=== PATIENT | male | born 1985 | race African-American/Black ===

== ENCOUNTER 2019-11-14 15:43 | Inpatient (IN) | payer OTHER ==
--- NOTE | 2019-11-14 15:49 | PDOC ---
Rapid Medical Evaluation Time Seen by Provider: 11/14/19 15:45 Medical Evaluation: Allergies Allergy/AdvReac Type Severity Reaction Status Date / Time No Known Allergies Allergy Verified 11/20/14 12:42 11/14/19 15:45 I have performed a brief in-person evaluation of this patient. CC: syncope immediately prior to arrival. PE: No focal findings. Orders: ekg, labs, IVF Patient will proceed to ED for further evaluation. 11/14/19 15:49 Discharge Disposition - Diagnosis Syncope and collapse - Referrals - Patient Instructions - Post Discharge Activity
[2019-11-14 15:50] VITALS: BMI 24.4
[2019-11-14] MEDS ORDERED: SODIUM CHLORIDE 1,000 ML IV STA (15:50)
[2019-11-14 16:28] LABS: BASO % 0.3 % (0-2.0); EOS % 1.2 % (0-4.5); HEMATOCRIT 42.7 % (35.4-49); LYMPH % 39.8 % (8-40); MCH 29.4 pg (25.7-33.7); MCHC 32.9 g/dl (32.0-35.9); MEAN CELL VOLUME 89.4 fl (80-96); MEAN PLT VOLUME 7.5 fl (7.5-11.1); NEUT % 51.7 % (42.8-82.8); PLATELET COUNT 287 K/MM3 (134-434); RBC 4.78 M/mm3 (4.00-5.60); RDW 13.4 % (11.9-15.9); WHITE BLOOD COUNT 10.4 K/mm3 (4.0-10.0)
--- NOTE | 2019-11-14 16:36 | PDOC ---
History of Present Illness - General Chief Complaint: Syncope/Near Syncope Stated Complaint: SYNCOPE Time Seen by Provider: 11/14/19 15:45 History Source: Patient - History of Present Illness Initial Comments: 11/14/19 16:31 34yo male who is three weeks s/p epididemal cyst resection presents after a wit nessed syncopal episode. Patient states he was standing and talking, looked up, everything went black, and he woke up on the floor. He states that the family member who witnessed it said he did not have any jerky movements, but did hit his head. He attributes this episode to not eating or drinking all day, being on his feet too much after being on two week rest after surgery, taking a full percocet rather than a half, and his daily marijuana. No headache, n/v, chest pain, SOB, neck pain. ROS negative PMH/PSH: as above meds: ibuprofen, percocet allergies: none ETOH: denies Tobacco: denies Drugs: daily cannabis use ROS GENERAL/CONSTITUTIONAL: No fever or chills. No weakness. HEAD, EYES, EARS, NOSE AND THROAT: No change in vision. No ear pain or discharge. No sore throat. CARDIOVASCULAR: No chest pain or shortness of breath RESPIRATORY: No cough, wheezing, or hemoptysis. GASTROINTESTINAL: No nausea, vomiting, diarrhea or constipation. GENITOURINARY: No dysuria, frequency, or change in urination. MUSCULOSKELETAL: No joint or muscle swelling or pain. No neck or back pain. SKIN: No rash NEUROLOGIC: loss of consciousness. No headache, vertigo, or change in stren gth/sensation. ENDOCRINE: No increased thirst. No abnormal weight change HEMATOLOGIC/LYMPHATIC: No anemia, easy bleeding, or history of blood clots. ALLERGIC/IMMUNOLOGIC: No hives or skin allergy. PE GENERAL: Awake, alert, and fully oriented, in no acute distress HEAD: No signs of trauma, normocephalic, atraumatic EYES: PERRLA, EOMI, sclera anicteric, conjunctiva clear ENT: Auricles normal inspection, hearing grossly normal, nares patent, oropharynx clear without exudates. Moist mucosa NECK: Normal ROM, supple, no lymphadenopathy, JVD, or masses LUNGS: No distress, speaks full sentences, clear to auscultation bilaterally HEART: Regular rate and rhythm, normal S1 and S2, no murmurs, rubs or gallops, peripheral pulses normal and equal bilaterally. ABDOMEN: Soft, nontender, normoactive bowel sounds. No guarding, no rebound. No masses EXTREMITIES : Normal inspection, Normal range of motion, no edema. No clubbing or cyanosis. NEUROLOGICAL: Cranial nerves II through XII grossly intact. Normal speech, no focal sensorimotor deficits. Ambulates with a cane since surgery three weeks ago SKIN: Warm, Dry, normal turgor, no rashes or lesions noted Vital Signs Temp Pulse Resp BP Pulse Ox 96.1 F L 72 18 113/76 100 11/14/19 15:46 11/14/19 15:46 11/14/19 15:46 11/14/19 15:46 11/14/19 15:46 MDM: 34yo M with recent surgery presents after a syncopal episode with headstrike. Not a perfect story for vasovagal syncope. DDx also includes cardiogenic, neurogenic, orthostatic syncope. Low concern for ICH given lack of headache, n/v, amnesia, disorientation. -EKG -CBC, CMP, trop -1L IVF 11/14/19 17:41 EKG: NSR with frequent PVCs, normal axis and intervals, LVH vs. normal variant, no ischemic ST-T changes Labs notable for: Abnormal Lab Results 11/14/19 11/14/19 16:20 16:20 WBC 10.4 H Potassium 3.3 L BUN 28.2 H Creatinine 1.8 H Will admit for syncope (cardiogenic vs. orthostatic), PVCs, CHAIM, hypokalemia. Will give another 1000ml IVF and 40meq potassium Signed out to admitting attending Past History - Medical History Allergies/Adverse Reactions: Allergies Allergy/AdvReac Type Severity Reaction Status Date / Time No Known Allergies Allergy Verified 11/14/19 15:50 Home Medications: Ambulatory Orders Ibuprofen [Motrin -] 600 mg PO TID 11/14/19 Oxycodone HCl/Acetaminophen [Percocet 5-325 mg Tablet] 1 tab PO 11/14/19 COPD: No - Surgical History Abdominal Surgery: Yes Appendectomy: Yes - Psycho-Social/Smoking History Smoking History: Never smoked Have you smoked in the past 12 months: No Information on smoking cessation initiated: No - Substance Abuse Hx (Audit-C & DAST Scrn) How often the patient has a drink containing alcohol: Never Score: In Men: 4 or > Positive; In Women: 3 or > Positive: 0 Screen Result (Pos requires Nsg. Audit-10AR): Negative In the last yr the pt used illegal drug/Rx for NonMed reason: Yes Score: Yes response is considered Positive: 1 Screen Result (Positive result requires Nsg. DAST-10): Positive *Physical Exam - Vital Signs Last Vital Signs Temp Pulse Resp BP Pulse Ox 96.1 F L 72 18 113/76 100 11/14/19 15:46 11/14/19 15:46 11/14/19 15:46 11/14/19 15:46 11/14/19 15:46 ED Treatment Course - LABORATORY CBC & Chemistry Diagram: 11/14/19 16:20 11/14/19 16:20 - ADDITIONAL ORDERS Additional order review: 11/14/19 16:20 RBC 4.78 MCV 89.4 MCHC 32.9 RDW 13.4 MPV 7.5 Neutrophils % 51.7 Lymphocytes % 39.8 Monocytes % 7.0 Eosinophils % 1.2 Basophils % 0.3 Discharge - Discharge Information Problems reviewed: Yes Clinical Impression/Diagnosis: Syncope and collapse, Frequent PVCs, CHAIM (acute kidney injury), Hypokalemia Condition: Fair - Follow up/Referral - Patient Discharge Instructions - Post Discharge Activity
[2019-11-14 16:57] LABS: ALK PHOS 89 U/L (45-117); ANION GAP 8 MMOL/L (8-16); BILIRUBIN,TOTAL 0.3 mg/dL (0.2-1); BLOOD UREA NITROGEN 28.2 mg/dL (7-18); CALCIUM 9.7 mg/dL (8.5-10.1); CHLORIDE 102 mmol/L (98-107); CO2 29 mmol/L (21-32); CREATININE 1.8 mg/dL (0.55-1.3); GLUCOSE,RANDOM 98 mg/dL (74-106); POTASSIUM 3.3 mmol/L (3.5-5.1); SGOT/AST 16 U/L (15-37); SGPT/ALT 27 U/L (13-61); SODIUM 139 mmol/L (136-145); TOT PROT 7.4 g/dl (6.4-8.2)
[2019-11-14] MEDS ORDERED: POTASSIUM CHLORIDE TABS 20 MEQ TABLET.ER (FP) PO ONE ×2 (17:09→17:15)
[2019-11-14] MEDS ORDERED: LACTATED RINGERS SOLUTION 1000 ML INFUS.BAG IV ONE (17:09)
--- NOTE | 2019-11-14 17:47 | HP ---
Admitting History and Physical - Admission Chief Complaint: Acute syncope and collapse History of Present Illness: This 34 yr old male with PMH of s/p epidermal cyst resection a dmitted via ER with an acute syncope and collapse, hypokalemia, and cardiac arrhythmia. 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: Alzheimer's, CVA, Dementia, Migraine, Multiple Sclerosis, Peripheral Neuropathy, Parkinson's, Seizure, Syncope, TIA, Vertigo, Other Cardiovascular: No: AFIB, Aneurysm, Aortic Insufficiency, Aortic Stenosis, CAD, CHF, Deep Vein Thrombosis, HTN, Hyperlipdemia, IA, Mitral Insufficiency, Mitral Stenosis, Murmur, Pulmonary Hypertension, Other Pulmonary: No: Asthma, Bronchitis, Cancer, COPD, O2 Dependent, Pneumonia, Previously Intubated, Pulmonary Embolus, Pulmonary Fibrosis, Sleep Apnea, Other Gastrointestinal: No: Ascites, Cancer, Constipation, Crohn's Disease, Diverticulitis, Diverticulosis, Esophageal Varices, Gastritis, GERD, GI Bleed, Hemorrhoids, Hiatal Hernia, Inflamatory Bowel Disease, Irritable Bowel Disease, Pancreatitis, Peptic Ulcer Disease, Ulcerative Colitis, Other Hepatobiliary: No: Cirrhosis, Cholelithiasis, Cholecystitis, Choledocholithiasis, Hepatitis A, Hepatitis B, Hepatitis C, Other Renal/: No: Renal Failure, Renal Inusuff, BPH, Cancer, Hematuria, Hemodialysis, Neurogenic Bladder, Renal Calculi, UTI, Other Heme/Onc: No: Anemia, B12 Deficiency, Bleeding Disorder, Cancer, Current Chemotherapy, Current Radiation Therapy, Hemochromatosis, Hypercoaguable State, Myeloproliferative Synd, Sickle Cell Disease, Sickle Cell Trait, Thrombocytopenia, Other Infectious Disease: No: AIDS, C-Diff, Herpes Zoster, HIV, MRSA, STD's, Tuberculosis, VREF, Other Psych: No: Addictions, Anxiety, Bipolar, Depression, Panic, Psychosis, Schizophrenia, Other Musculoskeletal: No: Bursitis, Chronic low back pain, Hemiparesis, Hemiplegia, Osteoarthritis, Paraplegia, Other Rheumatology: No: Fibromyalgia, Gout, Lupus, Rheumatoid Arthritis, Sarcoidosis, Vasculitis, Other ENT: No: Allergic Rhinitis, Sinusitis, Other Endocrine: No: Eyal's Disease, Smithmill's Disease, Diabetes Insipidus, Di abetes Mellitus, Hyperparathyroidism, Hyperthyroidism, Hypothyroidism, Osteopenia, SIADH, Other Dermatology: No: Basal Cell, Cellulitis, Eczema, Melanoma, Psoriasis, Squamous Cell, Other - Past Surgical History Past Surgical History: Yes: Appendectomy, Cystectomy (epidermal cyst resection) - Smoking History Smoking history: Never smoked Have you smoked in the past 12 months: No - Alcohol/Substance Use Hx Alcohol Use: No History of Substance Use: reports: Marijuana Home Medications - Allergies Allergies/Adverse Reactions: Allergies Allergy/AdvReac Type Severity Reaction Status Date / Time No Known Allergies Allergy Verified 11/14/19 15:50 - Home Medications Home Medications: Ambulatory Orders Ibuprofen [Motrin -] 600 mg PO TID 11/14/19 Oxycodone HCl/Acetaminophen [Percocet 5-325 mg Tablet] 1 tab PO 11/14/19 Review of Systems - Review of Systems Constitutional: reports: Weakness Eyes: reports: No Symptoms HENT: reports: No Symptoms Neck: reports: No Symptoms Cardiovascular: reports: No Symptoms Respiratory: reports: No Symptoms Gastrointestinal: reports: No Symptoms Genitourinary: reports: No Symptoms Breasts: reports: No Symptoms Reported Musculoskeletal: reports: Muscle Weakness Integumentary: reports: No Symptoms Neurological: reports: Weakness Endocrine: reports: No Symptoms Hematology/Lymphatic: reports: No Symptoms Psychiatric: reports: No Symptoms Physical Examination Vital Signs: Vital Signs Temperature 96.1 F L 11/14/19 15:46 Pulse Rate 72 11/14/19 15:46 Respiratory Rate 18 11/14/19 15:46 Blood Pressure 113/76 11/14/19 15:46 O2 Sat by Pulse Oximetry (%) 100 11/14/19 15:46 Constitutional: Yes: Well Nourished, No Distress, Calm Eyes: Yes: Conjunctiva Clear, EOM Intact HENT: Yes: Atraumatic, Normocephalic Neck: Yes: Supple, Trachea Midline Cardiovascular: Yes: Regular Rate and Rhythm, Pulse Irregular (extra beats) Respiratory: Yes: Regular, CTA Bilaterally Gastrointestinal: Yes: Normal Bowel Sounds, Soft ...Rectal Exam: Yes: Deferred Renal/: Yes: WNL Breast(s): Yes: WNL Musculoskeletal: Yes: Muscle Weakness Extremities: Yes: WNL Edema: No Peripheral Pulses WNL: Yes Integumentary: Yes: WNL Neurological: Yes: Alert, Oriented, Weakness ...Motor Strength: WNL Psychiatric: Yes: WNL Labs: CBC, BMP 11/14/19 16:20 11/14/19 16:20 Imaging - Results Chest X-ray: Report Reviewed EKG: Report Reviewed Other: Report Reviewed (lab data reviewed) Problem List - Problems (1) Cochlear otosclerosis, right ear Code(s): H80.21 - COCHLEAR OTOSCLEROSIS, RIGHT EAR (2) CHAIM (acute kidney injury) Code(s): N17.9 - ACUTE KIDNEY FAILURE, UNSPECIFIED (3) Frequent PVCs Code(s): I49.3 - VENTRICULAR PREMATURE DEPOLARIZATION (4) Hypokalemia Code(s): E87.6 - HYPOKALEMIA (5) Syncope and collapse Code(s): R55 - SYNCOPE AND COLLAPSE (6) Dysuria Code(s): R30.0 - DYSURIA (7) Epididymitis Code(s): N45.1 - EPIDIDYMITIS (8) Herpes genitalis in men Code(s): A60.02 - HERPESVIRAL INFECTION OF OTHER MALE GENITAL ORGANS (9) Otitis externa Code(s): H60.90 - UNSPECIFIED OTITIS EXTERNA, UNSPECIFIED EAR (10) Acute prerenal azotemia Code(s): R79.89 - OTHER SPECIFIED ABNORMAL FINDINGS OF BLOOD CHEMISTRY Assessment/Plan Assessment/plan: acute syncope and collapse, acute cardiac arrhythmia (PVC's), acute hypokalemia, acute prerenal azotemia, concussion without LOC, CHAIM, s/p epidermal cyst resection, right otosclerosis; IV fluids for prerenal azotemia; consult to Cardiology; admit to telemetry; out of bed in chair as tolerated; IV potassium chloride for hypokalemia. Ct scan shows bilateral frontoparietal subcortical white matter hypodensity.
--- NOTE | 2019-11-14 17:55 | PDOC ---
Documentation entered by Bianca Jimenez SCRIBE, acting as scribe for Kamran Chen MD. Kamran Chen MD: This documentation has been prepared by the Barbara carlos Xhesika, SCRIBE, under my direction and personally reviewed by me in its entirety. I confirm that the documentation accurately reflects all work, treatment, procedures, and medical decision making performed by me. 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 Pt states he was standing, looked up and everything went black. Pt states he hit his head. Pt reports LOC. Pt denies any other complaints. Notes that he was walking around all day, went to visit his mom in the [place], and didnt have anything to eat or drink. No prior history of syncope/dizziness. No exertional symptoms with excercise/sports. No known family history of early cardiac . Pt does endorse a couple episodes of watery stool yesterday that ahs resolved. no associate abd pain. The patient denies chest pain, shortness of breath, headache. Denies fever, chills, cough, nausea, vomiting, diarrhea and constipation. Denies dysuria, frequency, urgency and hematuria. Allergies: NKDA - Physicial Exam PE: 11/14/19 17:53 GENERAL: The patient is awake, alert, and fully oriented, Nontoxic - in no acute distress. HEAD: Normocephalic, atraumatic. EYES: extraocular movements intact, sclera anicteric, conjunctiva clear. ENT: Normal voice, dry mucous membranes. NECK: Normal range of motion, supple LUNGS: Breath sounds equal, clear to auscultation bilaterally. No wheezes, no rhonchi, no rales. HEART: tachycardicm, normal S1 and S2 without murmur, rub or gallop. ABDOMEN: Soft, nontender, No guarding, no rebound. No CVA tenderness EXTREMITIES: Normal range of motion, no edema. NEUROLOGICAL: No facial assymetry, Normal speech, moving all 4 ext spontaneously and symmetrically PSYCH: Normal mood, normal affect. 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 There is normal sinus rhythm with a rate of 81 frequent PVCs nonspecific TW changes Discharge - Discharge Information Problems reviewed: Yes Clinical Impression/Diagnosis: Syncope and collapse, Frequent PVCs, CHAIM (acute kidney injury), Hypokalemia Condition: Fair Disposition: HOME - Follow up/Referral - Patient Discharge Instructions - Post Discharge Activity
--- OUTSIDE RECORDS SUMMARY | 2019-11-14 20:13 | XMS ---
:1985 Author Organization [facility] Care Team Providers Name Role Phone ED STAFF PHYSICIANLONNIE Unavailable Unavailable ED STAFF PHYSICIAN, STAFF Unavailable Unavailable Asa De La Rosa MD Unavailable Unavailable Asa De La Rosa MD Unavailable Unavailable Asa De La Rosa MD Unavailable Unavailable Asa De La Rosa MD Unavailable Unavailable Asa De La Rosa MD Unavailable Unavailable Asa De La Rosa MD Unavailable Unavailable Asa De La Rosa MD Unavailable Unavailable Asa De La Rosa MD Unavailable Unavailable Asa De La Rosa MD Unavailable Unavailable Asa De La Rosa MD Unavailable Unavailable Asa De La Rosa MD Unavailable Unavailable Asa De La Rosa MD Unavailable Unavailable Asa De La Rosa MD Unavailable Unavailable Asa De La Rosa MD Unavailable Unavailable Asa De La Rosa MD Unavailable Unavailable Asa De La Rosa MD Unavailable Unavailable Asa De La Rosa MD Unavailable Unavailable Asa De La Rosa MD Unavailable Unavailable Asa De La Rosa MD Unavailable Unavailable Asa De La Rosa MD Unavailable Unavailable Asa De La Rosa MD Unavailable Unavailable Asa De La Rosa MD Unavailable Unavailable Asa De La Rosa MD Unavailable Unavailable ED STAFF LOURDES SIDHU Unavailable Unavailable Re-disclosure Warning The records that you are about to access may contain information from federally- assisted alcohol or drug abuse programs. If such information is present, then the following federally mandated warning applies: This information has been disclosed to you from records protected by federal confidentiality rules (42 CFR part 2). The federal rules prohibit you from making any further disclosure of this information unless further disclosure is expressly permitted by the written consent of the person to whom it pertains or as otherwise permitted by 42 CFR part 2. A general authorization for the release of medical or other information is NOT sufficient for this purpose. The Federal rules restrict any use of the information to criminally investigate or prosecute any alcohol or drug abuse patient.The records that you are about to access may contain highly sensitive health information, the redisclosure of which is protected by Article 27-F of the [facility] Public Health law. If you continue you may haveaccess to information: Regarding HIV / AIDS; Provided by facilities licensed or operated by the [facility] Office of Mental Health; or Provided by the [facility] Office for People With Developmental Disabilities. If such information is present, then the following [facility] mandated warning applies: This information has been disclosed to you from confidential records which are protected by state law. State law prohibits you from making any further disclosure of this information without the specific written consent of the person to whom it pertains, or as otherwise permitted by law. Any unauthorized further disclosure in violation of state law may result in a fine or nursing home sentence or both. A general authorization for the release of medical or other information is NOT sufficient authorization for further disclosure. Allergies and Adverse Reactions Type Description Substance Reaction Status Data Source(s ) Allergy to No Known Allergies No known GREENW AY substance allergies ([facility] (situation) Medicine and Infectious Disease) Allergy to No Known Allergies No known GREENW AY substance allergies ([facility] (situation) Medicine and Infectious Disease) Allergy to No Known Allergies No known GREENW AY substance allergies ([facility] (situation) Medicine and Infectious Disease) Encounters Encounter Providers Location Date Indications Data Source(s ) Outpatient<td Attender: Asa [facility] [place] Routine Manjuo chrissie ANDRADE ID="encounterTy Estrella IRIZARRY MEDICINE & 0 and Physical ([facility] olrafiq peDescriptionID INFECTIOUS 12:58:00 RI Medici ne 0">PreOperative DISEASE PM EDT - and Infec tious visit</td><td>J Disease) duran Novak MD</td><td>METR 01:46:00 OPJONAH RI PM EDT MEDICINE & INFECTIOUS DISEASE</td><td >10/17/2019</td ><td><content ID="encounterDi agnosisID0-0">R outine History and Physical</mohamud nt></td> Routine History and Physical Outpatient<td Attender: [facility] 03/03/2019 Routine LUPE ID="encounterTypeDescriptionID0">[facility] Asa RI MEDIC INE & 09:46:00 AM History ([facility] visit</td><td>Asa De La Rosa MD INFECTIOUS EST - and RI Medicine MD</td><td>[facility] [place] MEDICINE & DISEASE 0 Physical and Infectious INFECTIOUS 10:32:00 AM Disease) DISEASE</td><td>03/03/2019</td><td><content EST ID="encounterDiagnosisID0-0">Routine History and Physical</content></td> Routine History and Physical Outpatient<td Attender: [facility] 02/02/2019 Herpes LUPE ID="encounterTypeDescriptionID0">[facility] MEDICINE & 04:13:0 0 PM Simplex ([facility] Patient</td><td>Asa De La Rosa MD INFECTIOUS EST - Type RI Medicine </td><td>[facility] [place] MEDICINE & DISEASE 9 IiHerpes and Infectious INFECTIOUS 05:12:00 PM Simplex Disease) DISEASE</td><td>02/02/2019</td><td><content EST Genitalis ID="encounterDiagnosisID0-0">Herpes Simplex Genitalis</content>, <content ID="encounterDiagnosisID0-1">Herpes Simplex Type Ii</content></td> Herpes Simplex Type Ii Herpes Simplex Genitalis Emergency Attender: LOURDES ED STAFF H 01/02/2019 11:34:00 AM [facility] PHYSICIANAttender: LONNIE DORSEY EST - 01/02/2019 [facility] Center STAFF PHYSICIANAttender: STAFF 01:12:00 PM EST ED STAFF PHYSICIANAdmitter: LOURDES ED STAFF PHYSICIAN Patient discharged. Emergency H 11/04/2018 03:31:00 PM EDT - 019 [facility] 06:35:00 PM EDT Patient discharged. Medications Medication Brand Start Product Dose Route Administrative Pharmacy [facility] Indications Reaction Description Data Name Date Form Instructions Instructions Source(s) Acyclovir Acyclo active acyclovir LUPE 0.05 MG/MG vir 5% 2019 0.05 MG/MG ( [facility] Topical Batch Unloader 12:00: Topical cash N Y Ointment al 00 AM Ointment Medici ne Acyclovir Ointme EST and 5% External nt Infectio us Ointment Disease) Acyclovir acyclo 1 complet Saint 400 MG Oral vir ed Adela Tablet 400 mg Medical acyclovir Tablet Center 400 mg , Tablet, Ordere Ordered By: d By: lesly Araujo PADirection Vikash s: 1 tablet a, oral three PADire times a day ctions : 1 tablet oral three times a day Acyclovir acyclo 1 complet Saint 800 MG Oral vir ed Adela Tablet 800 mg Medical acyclovir Tablet Center 800 mg , Tablet, Ordere Ordered By: d By: lesly Araujo PADirection Vikash s: 1 tablet a, oral three PADire times a day ctions : 1 tablet oral three times a day Acyclovir acyclo 1 complet Saint 0.05 MG/MG vir 5 ed Adela Topical % Medical Ointment Ointme Center acyclovir 5 nt, % Ointment, Ordere Ordered By: d By: lesly Araujoirection Vikash s: 1 a, application PADire topical ctions twice a day : 1 applic ation topica l twice a day Insurance Providers Payer name Policy type / Policy ID Covered Covered green party's Policy Plan Coverage type green party ID relationship to Matthews Information matthews [id number] Individual 0 Self 0 National Policy Benefit Fund [id number] Individual 0 Self 0 National Policy Benefit Fund [id number] Individual 0 Self 0 National Policy Benefit Fund O Problems, Conditions, and Diagnoses Code Display Name Description Problem Type Effective Dates Data Source(s) A60.00 Herpesviral HERPESVIRAL Diagnosis 01/02/2019 [facility] infection of INFECTION OF 11:34:00 AM EST Medic al Center urogenital system, UROGENITAL unspecified SYSTEM, UNSPECIFIED N50.89 Other specified OTHER SPECIFIED Diagnosis 01/02/2019 Mayra Chapman disorders of the DISORDERS OF THE 11:34:00 AM E [facility] male genital MALE GENITAL organs ORGANS A60.02 Herpesviral HERPESVIRAL Diagnosis 11/04/2018 [facility] infection of other INFECTION OF 03:31:00 PM EDT Medical Center male genital OTHER MALE organs GENITAL ORGANS R21 Rash and other RASH AND OTHER Diagnosis 11/04/2018 [facility] nonspecific skin NONSPECIFIC SKIN 03:31:00 PM E [facility] eruption ERUPTION Surgeries/Procedures Procedure Description Date Indications Data Source(s) Reported medical Reported medical 10/17/2019 GRE[place] Y history - Genital history - Genital 12:00:00 AM ([place] HSV, Otosclerosis HSV, Otosclerosis EDT Medic ine and Infectious Disease) Surgical / procedural Surgical / procedural 10/17/2019 LUPE history history 12:00:00 AM ([facility] [place] ~Appendectomy, (R) ~Appendectomy, (R) EDT Med icine and ear stapedectomy ear stapedectomy Infecti ous Disease) Clinical summary 10/17/2019 LUPE provided to patient 12:00:00 AM ([place] EDT - Medicine and 10/17/2019 Infectious 12:00:00 AM Disease) EDT Education (procedure) 10/17/2019 [facility] AY 12:00:00 AM ([facility] [place] EDT - Medicine and 10/17/2019 Infectious 12:00:00 AM Disease) EDT Reported medical Reported medical 03/03/2019 [place] Y history - Genital history - Genital 12:00:00 AM ([place] HSV, Otosclerosis HSV, Otosclerosis EST Medic ine and Infectious Disease) Surgical / procedural Surgical / procedural 03/03/2019 LUPE history - history - 12:00:00 AM ([facility] Appendectomy Appendectomy EST Medicine and Infectious Disease) Clinical summary 03/03/2019 LUPE provided to patient 12:00:00 AM ([place] EST - Medicine and 03/03/2019 Infectious 12:00:00 AM Disease) EST Education (procedure) 03/03/2019 [place] AY 12:00:00 AM ([facility] EST - Medicine and 03/03/2019 Infectious 12:00:00 AM Disease) EST Reported medical Reported medical 02/02/2019 GRE[place] Y history - Genital history - Genital 12:00:00 AM ([place] HSV, Otosclerosis HSV, Otosclerosis EST Medic ine and Infectious Disease) Surgical / procedural Surgical / procedural 02/02/2019 LUPE history - history - 12:00:00 AM ([facility] [place] Appendectomy Appendectomy EST Medicine and Infectious Disease) Results ID Date Data Source [id number] 10/20/2019 09:03:00 AM EDT [facility] Name Value Range Interpretation Description Data Sup porting Code Source(s) Document(s ) SARS [facility] coronavirus 2 RNA This lab was ordered by [facility] and reported by [facility]. ID Date Data Source [id number] 09/28/2019 10:53:00 AM EDT [facility] Name Value Range Interpretation Code Description Data Mayra rce(s) Supporting Document(s ) HOLOGIC [facility] SARS-CoV-2 TMA PCR This lab was ordered by [facility] and reported by [facility]. ID Date Data Source [id number] 09/23/2019 11:09:00 AM EDT [facility] Name Value Range Interpretation Code Description Data Mayra rce(s) Supporting Document(s ) HOLOGIC [facility] SARS-CoV-2 TMA PCR This lab was ordered by [facility] and reported by [facility]. ID Date Data Source [id number] 09/17/2019 09:44:00 AM EDT [facility] Name Value Range Interpretation Code Description Data Mayra rce(s) Supporting Document(s ) HOLOGIC [place] SARS-CoV-2 TMA PCR This lab was ordered by [facility] and reported by [facility]. ID Date Data Source [id number] 09/09/2019 02:20:00 AM EDT [facility] Name Value Range Interpretation Code Description Data Mayra rce(s) Supporting Document(s ) SARS-CoV-2 [facility] , RNA This lab was ordered by [facility] and reported by [facility]. ID Date Data Source [id number] 09/04/2019 11:47:00 AM EDT [facility] Name Value Range Interpretation Code Description Data Mayra rce(s) Supporting Document(s ) SARS-CoV-2 [place] , RNA This lab was ordered by [facility] Noovo and reported by [facility]. ID Date Data Source [id number] 08/31/2019 11:29:00 AM EDT [facility] Name Value Range Interpretation Code Description Data Mayra rce(s) Supporting Document(s ) SARS-CoV-2 [place] , RNA This lab was ordered by [facility] No[facility] and reported by [facility]. ID Date Data Source [id number] 08/23/2019 08:46:00 AM EDT [facility] Name Value Range Interpretation Code Description Data Mayra rce(s) Supporting Document(s ) SARS-CoV-2 [place] , RNA This lab was ordered by [facility] [employer] and reported by [facility]. ID Date Data Source [id number] 08/14/2019 10:00:00 AM EDT [place] Name Value Range Interpretation Code Description Data Mayra rce(s) Supporting Document(s ) SARS-CoV-2 [place] , RNA This lab was ordered by [facility] [employer] [facility] and reported by [facility]. ID Date Data Source [id number] 08/08/2019 08:15:00 AM EDT [facility] Name Value Range Interpretation Code Description Data Mayra rce(s) Supporting Document(s ) SARS-CoV-2 [place] , RNA This lab was ordered by [employer] [facility] and reported by [facility]. ID Date Data Source [id number] 07/31/2019 12:14:00 PM EDT [facility] Name Value Range Interpretation Code Description Data Mayra rce(s) Supporting Document(s ) SARS-CoV-2 [place] , RNA This lab was ordered by [facility] [employer] and reported by [facility]. ID Date Data Source [id number] 07/24/2019 08:18:00 AM EDT [facility] Name Value Range Interpretation Code Description Data Mayra rce(s) Supporting Document(s ) SARS-CoV-2 [place] , RNA This lab was ordered by [facility] and reported by [facility]. ID Date Data Source [id number] 07/20/2019 07:18:00 AM EDT [facility] Name Value Range Interpretation Code Description Data Mayra rce(s) Supporting Document(s ) SARS-CoV-2 [place] , RNA This lab was ordered by [facility] [employer] and reported by [facility]. ID Date Data Source [id number] 07/17/2019 06:58:00 AM EDT [facility] Name Value Range Interpretation Code Description Data Mayra rce(s) Supporting Document(s ) SARS-CoV-2 [facility] , RNA This lab was ordered by [facility] [employer] and reported by [facility]. ID Date Data Source [id number] 07/14/2019 10:13:00 AM EDT [facility] Name Value Range Interpretation Code Description Data Mayra rce(s) Supporting Document(s ) SARS-CoV-2 [place] , RNA This lab was ordered by [facility] and reported by [facility]. ID Date Data Source [id number] 07/08/2019 04:59:00 AM EDT [facility] Name Value Range Interpretation Code Description Data Mayra rce(s) Supporting Document(s ) SARS-CoV-2 [facility] , RNA This lab was ordered by [facility] G[facility] and reported by [facility]. ID Date Data Source [id number] 07/06/2019 10:13:00 AM EDT [facility] Name Value Range Interpretation Code Description Data Mayra rce(s) Supporting Document(s ) SARS-CoV-2 [place] , RNA This lab was ordered by [facility]A GAN and reported by [facility]. ID Date Data Source [id number] 03/03/2019 02:59:00 PM EST [facility] ([facility] Medicine and Infectious Disease) Name Value Range Interpretation Code Description Data Mayra rce(s) Supporting Document(s ) INR 1.07 RATIO Below low normal INR [facility] ([facility] Medicine [facility] Infectious Disease) Note: No Anticoagulant, Normal 0.9 - 1.1Low Intensity Therapy 1.5 - 2.0Moderate Intensity Therapy 2.0 - 3.0High Intensity Therapy (1) 2.5 - 3.5High Intensity Therapy (2) 3.0 - 4.0 PT 13.8 SEC PT [facility] ([facility] Medicine and Infectious Disease) ID Date Data Source [id number] 03/03/2019 02:59:00 PM EST [place] ([facility] Medicine and Infectious Disease) Name Value Range Interpretation Description Data Sup porting Code Source(s) Document(s ) WBC 6.1 WBC [facility] THDS/CMM ([facility] Medicine and Infectious Disease) RBC 4.73 RBC [facility] MILL/CMM ([facility] Medicine and Infectious Disease) PLATELET COUNT 236 PLATELET COUNT [facility] THOUS/CM ([facility] Medicine and Infectious Disease) MCH 30.0 pg MCH [facility] ([facility] Medicine and Infectious Disease) MCV 89 fL MCV [facility] ([facility] Medicine and Infectious Disease) Hematocrit 42.0 % HEMATOCRIT [facility] [Pure volume ([facility] fraction] of [facility] Blood by Medicine and Automated count Infectious Disease) Hemoglobin 14.2 HEMOGLOBIN LUPE [Mass/volume] G/DL ([facility] in Mixed venous [facility] blood by Medicine and Oximetry Infectious Disease) ABSOLUTE 3.18 ABSOLUTE LUPE NEUTROPHILS K/uL NEUTROPHILS ([facility] Medicine and Infectious Disease) ABSOLUTE EOS 0.12 ABSOLUTE EOS LUPE K/uL ([facility] Medicine and Infectious Disease) ABSOLUTE MONOS 0.38 ABSOLUTE MONOS LUPE K/uL ([facility] and Infectious Disease) MCHC 33.8 MCHC LUPE g/dl ([facility] and Infectious Disease) EOS 2.0 % EOS LUPE ([facility] Medicine and Infectious Disease) POLYS 51.8 % POLYS LUPE ([facility] and Infectious Disease) ABSOLUTE BASO 0.02 ABSOLUTE BASO LUPE K/uL ([facility] and Infectious Disease) LYMPHS 38.7 % LYMPHS LUPE ([facility] and Infectious Disease) MONOS 6.2 % MONOS LUPE ([facility] Medicine and Infectious Disease) RDW 11.7 % RDW LUPE ([facility] and Infectious Disease) ABSOLUTE LYMPHS 2.37 ABSOLUTE LUPE K/uL LYMPHS ([facility] and Infectious Disease) IMMATURE 1.0 % IMMATURE LUPE GRANULOCYTES GRANULOCYTES ([facility] and Infectious Disease) BASOS 0.3 % BASOS LUPE ([facility] Medicine and Infectious Disease) ABSOLUTE 0.06 ABSOLUTE LUPE IMMATURE K/uL IMMATURE ([facility] GRANULOCYTES GRANULOCYTES [facility] and Infectious Disease) ID Date Data Source [id number] 03/03/2019 02:59:00 PM EST LUPE ([facility] Medicine and Infectious Disease) Name Value Range Interpretation Description Data Sup porting Code Source(s) Document(s ) Albumin 4.6 g/dL ALBUMIN LUPE [Mass/volume] ([facility] in Blood by [facility] Bromocresol and purple (BCP) Infectious dye binding Disease) method BILIRUBIN,TOTA 0.5 BILIRUBIN,TOTA LUPE L mg/dL L ([facility] Medicine and Infectious Disease) AST(SGOT) 23 U/L AST(SGOT) LUPE ([facility] Medicine and Infectious Disease) Alkaline 76 U/L ALKALINE LUPE phosphatase PHOSPHATASE ([facility] [Enzymatic RI Medicine activity/volum and e] in Serum, Infectious Plasma or Disease) Blood ALT(SGPT) 15 U/L ALT(SGPT) LUPE ([facility] Medicine and Infectious Disease) Carbon dioxide 26 CARBON DIOXIDE LUPE [VFr/PPres] in mmol/L ([facility] Gas delivery [facility] system and Infectious Disease) Calcium 10.0 CALCIUM LUPE [Moles/volume] mg/dL ([facility] in Urine RI Medicine collected for and unspecified Infectious duration Disease) Chloride 102 CHLORIDE LUPE [Moles/volume] mmol/L ([facility] in Serum, [facility] Plasma or and Blood Infectious Disease) Urea nitrogen 21 mg/dL Above high normal UREA NITROGEN GREE NWAY [Moles/volume] ([facility] in Blood RI Medicine and Infectious Disease) Sodium 140 SODIUM LUPE [Moles/volume] mmol/L ([facility] in Serum, [facility] Plasma or and Blood Infectious Disease) Creatinine 1.15 CREATININE LUPE [Moles/volume] mg/dL ([facility] in Vitreous [facility] fluid and Infectious Disease) TOTAL PROTEIN 7.2 g/dL TOTAL PROTEIN LUPE ([facility] Medicine and Infectious Disease) Globulin 2.6 g/dL GLOBULIN LUPE [Mass/time] in ([facility] 24 hour Urine RI Medicine and Infectious Disease) GFR in 96 GFR in LUPE Cymro Cymro ([facility] (CKD-EPI) (CKD-EPI) RI Medicine and Infectious Disease) GLUCOSE 78 mg/dL GLUCOSE LUPE NON-FASTING NON-FASTING ([facility] Medicine and Infectious Disease) GFR 83 GFR LUPE Calculation ml/min/1 Calculation ([facility] (CKD-EPI) .73m2 (CKD-EPI) RI Medicine and Infectious Disease) Potassium 4.0 POTASSIUM LUPE [Mass/volume] mmol/L ([facility] in Blood RI Medicine and Infectious Disease) A/G 1.8 A/G LUPE RATIO ([facility] Medicine and Infectious Disease) ID Date Data Source [id number] 02/03/2019 08:06:00 AM EST [facility] Name Value Range Interpretation Description Data Sup porting Code Source(s) Document(s ) WBC 8.0 3.4-10.8 [facility] x10E3/uL RBC 4.79 4.14-5.80 [facility] x10E6/uL Hemoglobin 14.2 g/dL 13.0-17.7 [facility] Hematocrit 40.9 % 37.5-51.0 [facility] MCV 85 fL 79-97 [facility] MCH 29.6 pg 26.6-33.0 [facility] MCHC 34.7 g/dL 31.5-35.7 [facility] RDW 13.2 % 12.3-15.4 [facility] Effective February 20, 2019, the RDW ped iatric reference interval will be removed and the adult reference interval will b e changing to: Female 11.7 - 15.4 Male 11.6 - 15.4 Platelets 255 x10E3/uL 150-450 [facility] Neutrophils 55 % Not Estab. [facility] Lymphs 37 % Not Estab. [facility] Monocytes 7 % Not Estab. [facility] Eos 1 % Not Estab. [facility] Basos 0 % Not Estab. [facility] Neutrophils (Absolute) 4.4 x10E3/uL 1.4-7.0 [facility] Lymphs (Absolute) 3.0 x10E3/uL 0.7-3.1 [facility] Monocytes(Absolute) 0.5 x10E3/uL 0.1-0.9 [facility] Eos (Absolute) 0.1 x10E3/uL 0.0-0.4 [facility] Baso (Absolute) 0.0 x10E3/uL 0.0-0.2 [facility] Immature Granulocytes 0 % Not Estab. [facility] Immature Grans (Abs) 0.0 x10E3/uL 0.0-0.1 [facility] ID Date Data Source [id number] 02/03/2019 11:05:00 AM EST [facility] Name Value Range Interpretation Code Description Data Mayra rce(s) Supporting Document(s ) HCV Ab 0.0-0.9 [facility] ID Date Data Source [id number] 02/06/2019 08:05:00 AM EST [facility] Name Value Range Interpretation Description Data Sup porting Code Source(s) Document(s ) Chlamydia/GC [facility] Amplification TESTS RESULT FLAG UNI TS REF RANGE LAB C trachomatis, SAURABH Negative (Negative) 01N gonorrhoeae, SAURABH Negative (Negative) 01 FLAG LEGEND: L-Low Normal,H-High Normal,LL -Alert Low,HH-Alert High <-Panic Low,>-Panic High,A-Abnormal,AA-Critical Abnormal Performed at:01 RN [facility] [address] [id number] Eri Short MD, ID Date Data Source [id number] 02/03/2019 08:06:00 AM EST [facility] Name Value Range Interpretation Description Data Sup porting Code Source(s) Document(s ) Glucose 83 mg/dL 65-99 [facility] BUN 21 mg/dL 6-20 Above high normal [facility] Creatinine 1.25 0.76-1.2 [facility] mg/dL 7 eGFR If 75 >59 [facility] NonAfricn Am mL/min/1 .73 eGFR If Africn 87 >59 [facility] Am mL/min/1 .73 BUN/Creatinine 17 9-20 [facility] Ratio Sodium 138 134-144 [facility] mmol/L Potassium 3.9 3.5-5.2 [facility] mmol/L Chloride 101 96-106 [facility] mmol/L Carbon 21 20-29 [facility] Dioxide, Total mmol/L Calcium 9.9 8.7-10.2 [facility] mg/dL Protein, Total 6.7 g/dL 6.0-8.5 [facility] Albumin 4.5 g/dL 3.5-5.5 [facility] Globulin, 2.2 g/dL 1.5-4.5 [facility] Total A/G Ratio 2.0 1.2-2.2 [facility] Bilirubin, 0.3 0.0-1.2 [facility] Total mg/dL Alkaline 73 IU/L 39-117 [facility] Phosphatase AST (SGOT) 20 IU/L 0-40 [facility] ALT (SGPT) 12 IU/L 0-44 [facility] ID Date Data Source [id number] 02/03/2019 11:05:00 AM EST [facility] Name Value Range Interpretation Code Description Data Mayra rce(s) Supporting Document(s ) Interpreta [facility] tion: NegativeNot infected with HCV, unless re cent infection is suspected or otherevidence exists to indicate HCV infection. ID Date Data Source [id number] 02/03/2019 08:06:00 AM EST [facility] Name Value Range Interpretation Description Data Sup porting Code Source(s) Document(s ) Specific 1.012 1.005-1.03 [facility] [place] 0 pH 6.0 5.0-7.5 [facility] Urine-Color Yellow Yellow [facility] Appearance Clear Clear [facility] WBC Esterase Negative Negative [facility] Protein Trace Negative/T [facility] race Glucose Negative Negative [facility] Ketones Negative Negative [facility] Occult Blood Negative Negative [facility] Bilirubin Negative Negative [facility] Urobilinogen, 0.2 mg/dL 0.2-1.0 [facility] Semi-Qn Nitrite, Negative Negative [facility] Urine Microscopic [facility] Examination Microscopic follows if indicated. ID Date Data Source [id number] 02/03/2019 11:05:00 AM EST [facility] Name Value Range Interpretation Code Description Data Mayra rce(s) Supporting Document(s ) HSV 1 0.00-0.90 [facility] IgG, Type Spec Negative <0.91 Equivocal 0.91 - 1.09 Positive >1.09 Note: Negative indicates no antibodies detected to HS V-1. Equivocal may suggest early infection. If clinically appropriate , retest at later date. Positive indicates antibodies detected to HSV-1 . HSV 2 IgG, Type Spec 0.00-0.90 Above high normal [facility] Negative <0.91 Equivocal 0.91 - 1.09 Positive >1.09 Note: Negative indicates no antibodies detected to HS V-2. Equivocal may suggest early infection. If clinically appropriate , retest at later date. Positive indicates antibodies detected to HSV-2 . ID Date Data Source [id number] 02/03/2019 08:06:00 AM EST [facility] Name Value Range Interpretation Description Data Sup porting Code Source(s) Document(s ) RPR Non Reactive Non Reactive [facility] ID Date Data Source [id number] 02/03/2019 11:05:00 AM EST [facility] Name Value Range Interpretation Description Data Sup porting Code Source(s) Document(s ) Hep B Non Reactive [facility] Surface Ab, Qual Non Reactiv e: Inconsistent with immunity, less than 10 mIU/mL Reactive: Consistent with immunity, greater than 9.9 mIU/mL ID Date Data Source [id number] 02/03/2019 11:05:00 AM EST [facility] Name Value Range Interpretation Description Data Sup porting Code Source(s) Document(s ) HIV Screen Non Non [facility] 4th Reactive Reactive Generation wRfx ID Date Data Source [id number] 02/03/2019 11:05:00 AM EST [facility] Name Value Range Interpretation Description Data Sup porting Code Source(s) Document(s ) HBsAg Negative Negative [facility] Screen ID Date Data Source [id number] 02/03/2019 11:05:00 AM EST [facility] Name Value Range Interpretation Description Data Sup porting Code Source(s) Document(s ) Hep B Negative Negative [facility] Core Ab, Tot ID Date Data Source [id number] 02/03/2019 11:05:00 AM EST [facility] Name Value Range Interpretation Description Data Sup porting Code Source(s) Document(s ) Hep A Ab, Negative Negative [facility] Total Procedure Social History Code Duration Value Status Description Data Source(s ) Smoking 10/17/2019 Never smoked completed Never smoked [facility] 01:00:00 PM EDT tobacco (finding) tobacco (find ing) ([facility]) Smoking 03/03/2019 Never smoked completed Never smoked [facility] 11:30:00 AM EST tobacco (finding) tobacco (find ing) ([facility]) Smoking 01/02/2019 Denies Ever completed Denies Ever [place] 12:01:00 PM EST Smoked Smoked Medical C enter Smoking 01/02/2019 Denies Ever completed Denies Ever [place] 11:45:00 AM EST Smoked Smoked Medical [facility] enter Smoking 11/04/2018 Denies Ever completed Denies Ever [place] 04:28:00 PM EDT Smoked Smoked Medical C enter Smoking 11/04/2018 Denies Ever completed Denies Ever [place] 04:02:00 PM EDT Smoked Smoked Medical C enter Assertion Full-time completed Full-time [facility] employment employment ([facility] (finding) (finding) Medicine and Infectious Disease) Assertion Single person completed Single person [facility] (finding) (finding) ([facility]) Assertion Finding relating completed Finding relating [place] to drug misuse to drug misuse ([facility] behavior behavior Medicine and (finding) (finding) Infectious Disease) Assertion Tobacco user completed Tobacco user [facility] (finding) (finding) ([facility]) Assertion Finding of completed Finding of [facility] alcohol intake alcohol intake ([facility] (finding) (finding) Medicine and Infectious Disease) Smoking Unknown if ever completed Unknown if ever ALONSO RUSSELL smoked smoked ([facility]) Vital Signs ID Date Data Source UNK Name Value Range Interpretation Code Description Data Source(s) Body surface area 2.06 m2 2.06 m2 [place] Y Derived from ([facility] Infect[facility]) Body mass index 25.0 kg/m2 25.0 kg/m2 [facility] (BMI) [Ratio] ([facility] Infectious Disease) Body weight 184 [lb_av] 184 [lb_av] LUPE ([facility]) Body height 72 [in_i] 72 [in_i] [facility] ([facility]) Body temperature 97.8 [degF] 97.8 [degF] GREEN AY ([facility]) Respiratory rate 18 /min 18 /min LU[facility] ([facility]) Heart rate 70 /min 70 /min [facility] ([facility]) Diastolic blood 82 mm[Hg] 82 mm[Hg] [facility] pressure ([facility]) Systolic blood 130 mm[Hg] 130 mm[Hg] [facility] pressure ([facility]) Body surface area 2.04 m2 2.04 m2 [place] Y Derived from ([facility] Infect[facility]) Body mass index 24.4 kg/m2 24.4 kg/m2 [facility] (BMI) [Ratio] ([facility] Infectious Disease) Body weight 180 [lb_av] 180 [lb_av] LUPE ([facility]) Body height 72 [in_i] 72 [in_i] LUPE ([facility]) Body temperature 98.4 [degF] 98.4 [degF] GREENW AY ([facility]) Respiratory rate 18 /min 18 /min LUPE ([facility]) Heart rate 66 /min 66 /min [facility] ([facility]) Diastolic blood 78 mm[Hg] 78 mm[Hg] [facility] pressure ([facility]) Systolic blood 120 mm[Hg] 120 mm[Hg] [facility] pressure ([facility]) Respiratory rate 18 /min 18 /min LU[facility] ([facility]) Heart rate 68 /min 68 /min [place] ([facility]) Diastolic blood 80 mm[Hg] 80 mm[Hg] [place] pressure ([facility]) Systolic blood 120 mm[Hg] 120 mm[Hg] [place] pressure ([facility]) Body temperature 36.860718 36.940180 Jenise [facility] Respiratory rate 17 /min 17 /min [facility] Oxygen saturation 98 % 98 % [facility] Arterial blood [facility] Center by Pulse oximetry Heart rate 67 /min 67 /min [facility] Diastolic blood 54 mm[Hg] 54 mm[Hg] [facility] pressure [facility] Systolic blood 129 mm[Hg] 129 mm[Hg] [facility] Body weight 82.581361 82.610476 kg [facility] hs Measured kg [facility] Body temperature 36.412513 36.270621 Jenise [facility] Respiratory rate 18 /min 18 /min [facility] Oxygen saturation 99 % 99 % [facility] Arterial blood [facility] by Pulse oximetry Heart rate 71 /min 71 /min [facility] Body height 183.755532 183.700699 cm [facility] Diastolic blood 87 mm[Hg] 87 mm[Hg] [facility] pressure Medical Center Systolic blood 150 mm[Hg] 150 mm[Hg] [facility] Body mass index 24.4 kg/m2 24.4 kg/m2 [facility] (BMI) [Ratio] Medical [facility] Patient Treatment Plan of Care Planned Activity Planned Date Details Description Data Source (s) Acyclovir 0.05 MG/MG 02/02/2019 12:00:00 [facility] ([facility] Topical Ointment [facility] Medicine and Infectious Dise ase) Acyclovir 400 MG Oral [facility] Acyclovir 0.05 MG/MG [facility] Topical Ointment [place] Acyclovir 800 MG [facility]
--- OUTSIDE RECORDS SUMMARY | 2019-11-14 20:25 | XMS ---
:1985 [facility] Providers Name Role Phone ED STAFF PHYSICIANLONNIE Unavailable Unavailable ED STAFF PHYSICIAN, Unavailable Unavailable Asa De La Rosa MD [...] is protected by Article 27-F of the [facility] Public Health law. If you continue you may haveaccess to information: Regarding HIV / AIDS; Provided by facilities licensed or operated by the [facility] Office of Mental Health; or Provided by the [facility] Office for People With Developmental Disabilities. If such information is present, then the following [facility] mandated warning applies: This information [...] law may result in a fine or usp sentence or both. A general authorization for the release of medical or other information is NOT sufficient authorization for further disclosure. Allergies and Adverse Reactions Type Description Substance Reaction Status Data Source(s ) Allergy to No Known Allergies No known GREENW AY substance allergies ([facility] [facility]) Medicine and Infectious Disease) Allergy to No Known Allergies No known GREENW AY substance allergies ([facility] [facility]) Medicine and Infectious Disease) Allergy to No Known Allergies No known GREENW AY substance allergies ([facility] [facility]situation) Medicine and Infectious Disease) Encounters Encounter Providers Location Date Indications Data Source(s ) Outpatient<td Attender: Asa [facility] Routine Manjuo chrissie ANDRADE ID="encounterTy Estrella IRIZARRY MEDICINE & 0 and Physical ([facility] rush peDescriptionID INFECTIOUS 12:58:00 HI Medici ne 0">PreOperative DISEASE PM EDT - and Infec tious visit</td><td>J Disease) duran Novak MD</td><td>METR 01:46:00 [place] HI PM EDT MEDICINE & INFECTIOUS DISEASE</td><td >10/17/2019</td ><td><content ID="encounterDi agnosisID0-0">R outine History and Physical</mohamud nt></td> Routine History and Physical Outpatient<td Attender: [facility] 03/03/2019 Routine LUPE ID="encounterTypeDescriptionID0">[facility] Asa HI MEDIC INE & 09:46:00 AM History ([facility] visit</td><td>Asa De La Rosa MD INFECTIOUS EST - and HI Medicine MD</td><td>[facility] MEDICINE & DISEASE 0 Physical and Infectious INFECTIOUS 10:32:00 AM Disease) DISEASE</td><td>03/03/2019</td><td><content EST ID="encounterDiagnosisID0-0">Routine History and Physical</content></td> Routine History and Physical Outpatient<td Attender: [facility] 02/02/2019 Herpes LUPE ID="encounterTypeDescriptionID0">[facility] MEDICINE & 04:13:0 0 PM Simplex ([facility] Patient</td><td>Asa De La Rosa MD INFECTIOUS EST - Type HI Medicine </td><td>[facility] MEDICINE & DISEASE 9 IiHerpes and Infectious INFECTIOUS 05:12:00 PM Simplex Disease) DISEASE</td><td>02/02/2019</td><td><content EST Genitalis ID="encounterDiagnosisID0-0">Herpes Simplex Genitalis</content>, <content ID="encounterDiagnosisID0-1">Herpes Simplex Type Ii</content></td> Herpes Simplex Type Ii Herpes Simplex Genitalis Emergency Attender: [facility] ED STAFF H 01/02/2019 11:34:00 AM [facility] PHYSICIANAttender: LONNIE DORSEY EST - 01/02/2019 [facility] STAFF PHYSICIANAttender: STAFF 01:12:00 PM EST ED STAFF PHYSICIANAdmitter: [facility] ED STAFF PHYSICIAN Patient discharged. Emergency H 11/04/2018 03:31:00 PM EDT - 019 [facility] 06:35:00 PM EDT Patient discharged. 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 12:00: Topical cash N Y Ointment al 00 AM Ointment Medici ne Acyclovir Ointme EST and 5% External nt Infectio us Ointment Disease) Acyclovir acyclo 1 complet [facility] 400 MG Oral vir ed Adela Tablet 400 mg Medical acyclovir Tablet [place] 400 mg , Tablet, Ordere Ordered By: d By: lesly Araujo PADirection Vikash s: 1 tablet a, oral three PADire times a day ctions : 1 tablet oral three times a day Acyclovir acyclo 1 complet [facility] 800 MG Oral vir ed Adela Tablet 800 mg Medical acyclovir Tablet Center 800 mg , Tablet, Ordere Ordered By: d By: lesly Araujoirection Vikash s: 1 tablet a, oral three [...] Policy type / Policy ID Covered Covered libertarian's Policy Plan Coverage type libertarian ID relationship to Matthews Information matthews [facility] 1199 - [id number] [facility] 1199 - [id number] [facility] 1199 Individual 0 Self 0 National Policy [...] the DISORDERS OF THE 11:34:00 AM E [facility] male genital MALE GENITAL organs ORGANS A60.02 Herpesviral HERPESVIRAL Diagnosis 11/04/2018 [facility] infection of other INFECTION OF 03:31:00 PM [facility] male genital OTHER MALE organs GENITAL ORGANS R21 Rash and other RASH AND OTHER Diagnosis 11/04/2018 [facility] Adela nonspecific skin NONSPECIFIC SKIN 03:31:00 PM E [facility] eruption ERUPTION Surgeries/Procedures Procedure Description Date Indications [...] Surgical / procedural Surgical / procedural 02/02/2019 COY history - history - 12:00:00 AM ([facility] Appendectomy Appendectomy EST Medicine and Infectious Disease) Results ID Date Data Source [id number] 10/20/2019 09:03:00 AM EDT [facility] Name Value Range Interpretation Description Data Sup porting Code Source(s) Document(s ) SARS [facility] coronavirus 2 RNA This lab was ordered by [facility] and reported by [facility]. ID Date Data Source [id number] 09/28/2019 10:53:00 AM EDT [facility] Name Value Range Interpretation Code Description Data Mayra rce(s) Supporting Document(s ) HOLOGIC [facility] SARS-CoV-2 TMA PCR This lab was ordered by [employer] and reported by [facility]. ID Date Data Source [id number] 09/23/2019 11:09:00 AM EDT [facility] Name Value Range Interpretation Code Description Data Mayra rce(s) Supporting Document(s ) HOLOGIC [facility] SARS-CoV-2 TMA PCR This lab was ordered by [employer] and reported by [facility]. ID Date Data Source [id number] 09/17/2019 09:44:00 AM EDT [facility] Name Value Range Interpretation Code Description Data Mayra rce(s) Supporting Document(s ) HOLOGIC [facility] SARS-CoV-2 TMA PCR This lab was ordered by [employer] and reported by [facility]. ID Date Data Source [id number] 09/09/2019 02:20:00 AM EDT [facility] Name Value Range Interpretation Code Description Data Mayra rce(s) Supporting Document(s ) SARS-CoV-2 [facility] , RNA This lab was ordered by [employer] and reported by [facility]. ID Date Data Source [id number] 09/04/2019 11:47:00 AM EDT [facility] Name Value Range Interpretation Code Description Data Mayra rce(s) Supporting Document(s ) SARS-CoV-2 [facility] , RNA This lab was ordered by [employer] and reported by [facility]. ID Date Data Source [id number] 08/31/2019 11:29:00 AM EDT [facility] Name Value Range Interpretation Code Description Data Mayra rce(s) Supporting Document(s ) SARS-CoV-2 [facility] , RNA This lab was ordered by [employer] and reported by [facility]. ID Date Data Source [id number] 08/23/2019 08:46:00 AM EDT [facility] Name Value Range Interpretation Code Description Data Mayra rce(s) Supporting Document(s ) SARS-CoV-2 [facility] , RNA This lab was ordered by [employer] [facility] and reported by [facility]. ID Date Data Source [id number] 08/14/2019 10:00:00 AM EDT [facility] Name Value Range Interpretation Code Description Data Mayra rce(s) Supporting Document(s ) SARS-CoV-2 [facility] , RNA This lab was ordered by [employer] and reported by [facility]. ID Date Data Source [id number] 08/08/2019 08:15:00 AM EDT [facility] Name Value Range Interpretation Code Description Data Mayra rce(s) Supporting Document(s ) SARS-CoV-2 [facility] , RNA This lab was ordered by [employer] [facility] and reported by [facility]. ID Date Data Source [id number] 07/31/2019 12:14:00 PM EDT [facility] Name Value Range Interpretation Code Description Data Mayra rce(s) Supporting Document(s ) SARS-CoV-2 [facility] , RNA This lab was ordered by [employer] and reported by [facility]. ID Date Data Source [id number] 07/24/2019 08:18:00 AM EDT [facility] Name Value Range Interpretation Code Description Data Mayra rce(s) Supporting Document(s ) SARS-CoV-2 [facility] , RNA This lab was ordered by [employer] and reported by [facility]. ID Date Data Source [id number] 07/20/2019 07:18:00 AM EDT [facility] Name Value Range Interpretation Code Description Data Mayra rce(s) Supporting Document(s ) SARS-CoV-2 [facility] , RNA This lab was ordered by [employer] and reported by [facility]. ID Date Data Source [id number] 07/17/2019 06:58:00 AM EDT [facility] Name Value Range Interpretation Code Description Data Mayra rce(s) Supporting Document(s ) SARS-CoV-2 [facility] , RNA This lab was ordered by [employer] and reported by [facility]. ID Date Data Source [id number] 07/14/2019 10:13:00 AM EDT [facility] Name Value Range Interpretation Code Description Data Mayra rce(s) Supporting Document(s ) SARS-CoV-2 [facility] , RNA This lab was ordered by [employer] and reported by [facility]. ID Date Data Source [id number] 07/08/2019 04:59:00 AM EDT [facility] Name Value Range Interpretation Code Description Data Mayra rce(s) Supporting Document(s ) SARS-CoV-2 [facility] , RNA This lab was ordered by [employer] and reported by [facility]. ID Date Data Source [id number] 07/06/2019 10:13:00 AM EDT [facility] Name Value Range Interpretation Code Description Data Mayra rce(s) Supporting Document(s ) SARS-CoV-2 [facility] , RNA This lab was ordered by [employer] and reported by [facility]. ID Date Data Source [id number] 03/03/2019 02:59:00 PM EST COY ([facility] Medicine and Infectious Disease) Name Value Range Interpretation Code Description Data Mayra rce(s) Supporting Document(s ) INR 1.07 RATIO Below low normal INR COY ([facility] Medicine and Infectious Disease) Note: No Anticoagulant, Normal 0.9 - 1.1Low Intensity Therapy 1.5 - 2.0Moderate Intensity Therapy 2.0 - 3.0High Intensity Therapy (1) 2.5 - 3.5High Intensity Therapy (2) 3.0 - 4.0 PT 13.8 SEC PT COY ([facility] Medicine and Infectious Disease) ID Date Data Source [id number] 03/03/2019 02:59:00 PM EST COY ([facility] Medicine and Infectious Disease) Name Value Range Interpretation Description Data Sup porting Code Source(s) Document(s ) WBC 6.1 WBC LUPE THDS/CMM ([facility] Medicine and Infectious Disease) RBC 4.73 RBC LUPE MILL/CMM ([facility] Medicine and Infectious Disease) PLATELET COUNT 236 PLATELET COUNT LUPE THOUS/CM ([facility] Medicine and Infectious Disease) MCH 30.0 pg MCH LUPE ([facility] and Infectious Disease) MCV 89 fL MCV LUPE ([facility] and Infectious Disease) Hematocrit 42.0 % HEMATOCRIT LUPE [Pure volume ([facility] fraction] of [facility] Blood by Medicine and Automated count Infectious Disease) Hemoglobin 14.2 HEMOGLOBIN LUPE [Mass/volume] G/DL ([facility] in Mixed venous [facility] blood by Medicine and Oximetry Infectious Disease) ABSOLUTE 3.18 ABSOLUTE LUPE NEUTROPHILS K/uL NEUTROPHILS ([facility] and Infectious Disease) ABSOLUTE EOS 0.12 ABSOLUTE EOS LUPE K/uL ([facility] and Infectious Disease) ABSOLUTE MONOS 0.38 ABSOLUTE MONOS LUPE K/uL ([facility] and Infectious Disease) MCHC 33.8 MCHC LUPE g/dl ([facility] and Infectious Disease) EOS 2.0 % EOS LUPE ([facility] and Infectious Disease) POLYS 51.8 % POLYS LUPE ([facility] and Infectious Disease) ABSOLUTE BASO 0.02 ABSOLUTE BASO LUPE K/uL ([facility] and Infectious Disease) LYMPHS 38.7 % LYMPHS LUPE ([facility] and Infectious Disease) MONOS 6.2 % MONOS LUPE ([facility] and Infectious Disease) RDW 11.7 % RDW LUPE ([facility] and Infectious Disease) ABSOLUTE LYMPHS 2.37 ABSOLUTE LUPE K/uL LYMPHS ([facility] and Infectious Disease) IMMATURE 1.0 % IMMATURE LUPE GRANULOCYTES GRANULOCYTES ([facility] and Infectious Disease) BASOS 0.3 % BASOS LUPE ([facility] and Infectious Disease) ABSOLUTE 0.06 ABSOLUTE [facility] IMMATURE K/uL IMMATURE ([facility] GRANULOCYTES GRANULOCYTES [facility] and Infectious Disease) ID Date Data Source [id number] 03/03/2019 02:59:00 PM EST LUPE ([facility] and Infectious Disease) Name Value Range Interpretation Description Data Sup porting Code Source(s) Document(s ) Albumin 4.6 g/dL ALBUMIN LUPE [Mass/volume] ([facility] in Blood by [facility] Bromocresol and purple (BCP) Infectious dye binding Disease) method BILIRUBIN,TOTA 0.5 BILIRUBIN,TOTA LUPE L mg/dL L ([facility] and Infectious Disease) AST(SGOT) 23 U/L AST(SGOT) LUPE ([facility] Medicine and Infectious Disease) Alkaline 76 U/L ALKALINE LUPE phosphatase PHOSPHATASE ([facility] [Enzymatic [facility] activity/volum and e] in Serum, Infectious Plasma or Disease) Blood ALT(SGPT) 15 U/L ALT(SGPT) LUPE ([facility] Medicine and Infectious Disease) Carbon dioxide 26 CARBON DIOXIDE LUPE [VFr/PPres] in mmol/L ([facility] Gas delivery HI Medicine system and Infectious Disease) Calcium 10.0 CALCIUM LUPE [Moles/volume] mg/dL ([facility] in Urine HI Medicine collected for and unspecified Infectious duration Disease) Chloride 102 CHLORIDE LUPE [Moles/volume] mmol/L ([facility] in Serum, [facility] Plasma or and Blood Infectious Disease) Urea nitrogen 21 mg/dL Above high normal UREA NITROGEN GREE NWAY [Moles/volume] ([facility] in Blood HI Medicine and Infectious Disease) Sodium 140 SODIUM LUPE [Moles/volume] mmol/L ([facility] in Serum, [facility] Plasma or and Blood Infectious Disease) Creatinine 1.15 CREATININE LUPE [Moles/volume] mg/dL ([facility] in Vitreous [facility] fluid and Infectious Disease) TOTAL PROTEIN 7.2 g/dL TOTAL PROTEIN LUPE ([facility] Medicine and Infectious Disease) Globulin 2.6 g/dL GLOBULIN LUPE [Mass/time] in ([facility] 24 hour Urine HI Medicine and Infectious Disease) GFR in [address] [facility] ([facility] (CKD-EPI) (CKD-EPI) HI Medicine and Infectious Disease) GLUCOSE 78 mg/dL GLUCOSE LUPE NON-FASTING NON-FASTING ([facility] Medicine and Infectious Disease) GFR 83 GFR LUPE Calculation ml/min/1 Calculation ([facility] (CKD-EPI) .73m2 (CKD-EPI) HI Medicine and Infectious Disease) Potassium 4.0 POTASSIUM LUPE [Mass/volume] mmol/L ([facility] in Blood HI Medicine and Infectious Disease) A/G 1.8 A/G LUPE RATIO ([facility] Medicine and Infectious Disease) ID Date Data Source [id number] 02/03/2019 08:06:00 AM EST [facility] Name Value [...] 0.0-0.1 [facility] ID Date Data Source [id number] 02/03/2019 11:05:00 AM EST [facility] Name Value Range Interpretation Code Description Data Mayra rce(s) Supporting Document(s ) HCV Ab 0.0-0.9 [facility] ID Date Data Source [id number] 02/06/2019 08:05:00 AM EST [facility] Name Value Range Interpretation Description Data Sup porting Code Source(s) Document(s ) Chlamydia/GC [facility] Amplification TESTS RESULT FLAG UNI TS REF RANGE LAB C trachomatis, SAURABH Negative (Negative) 01N gonorrhoeae, SAURABH Negative (Negative) 01 FLAG LEGEND: L-Low Normal,H-High Normal,LL -Alert Low,HH-Alert High <-Panic Low,>-Panic High,A-Abnormal,AA-Critical Abnormal Performed at:[address] [facility] [address] [id number] Eri Short MD, ID Date Data Source [id number] 02/03/2019 08:06:00 AM EST [facility] Name Value [...] IU/L 0-44 [facility] ID Date Data Source [id number] 02/03/2019 11:05:00 AM EST [facility] Name Value Range Interpretation Code Description Data Mayra rce(s) Supporting Document(s ) Interpreta [facility] tion: NegativeNot infected with HCV, unless re cent infection is suspected or otherevidence exists to indicate HCV infection. ID Date Data Source [id number] 02/03/2019 08:06:00 AM EST [facility] Name Value Range Interpretation Description Data Sup porting Code Source(s) Document(s ) Specific 1.012 1.005-1.03 [facility] [place] 0 pH 6.0 5.0-7.5 [facility] Urine-Color Yellow Yellow [facility] Appearance Clear Clear [facility] WBC Esterase Negative Negative [facility] Protein Trace Negative/T [facility] race Glucose Negative Negative [facility] Ketones Negative Negative [facility] Occult Blood Negative Negative [facility] Bilirubin Negative Negative [facility] Urobilinogen, 0.2 mg/dL 0.2-1.0 [facility] Semi-Qn Nitrite, Negative Negative [facility] Urine Microscopic [facility] Examination Microscopic follows if indicated. ID Date Data Source [id number] 02/03/2019 11:05:00 AM EST [facility] Name Value [...] to HSV-2 . ID Date Data Source [id number] 02/03/2019 08:06:00 AM EST [facility] Name Value Range Interpretation Description Data Sup porting Code Source(s) Document(s ) RPR Non Reactive Non Reactive [facility] ID Date Data Source [id number] 02/03/2019 11:05:00 AM EST [facility] Name Value Range Interpretation Description Data Sup porting Code Source(s) Document(s ) Hep B Non Reactive [facility] Surface Ab, Qual Non Reactiv e: Inconsistent with immunity, less than 10 mIU/mL Reactive: Consistent with immunity, greater than 9.9 mIU/mL ID Date Data Source [id number] 02/03/2019 11:05:00 AM EST [facility] Name Value Range Interpretation Description Data Sup porting Code Source(s) Document(s ) HIV Screen Non Non [facility] 4th Reactive Reactive Generation wRfx ID Date Data Source [id number] 02/03/2019 11:05:00 AM EST [facility] Name Value Range Interpretation Description Data Sup porting Code Source(s) Document(s ) HBsAg Negative Negative [facility] Screen ID Date Data Source [id number] 02/03/2019 11:05:00 AM EST [facility] Name Value Range Interpretation Description Data Sup porting Code Source(s) Document(s ) Hep B Negative Negative [facility] Core Ab, Tot ID Date Data Source [id number] 02/03/2019 11:05:00 AM EST [facility] Name Value Range Interpretation Description Data Sup porting Code Source(s) Document(s ) Hep A Ab, Negative Negative [facility] Total Procedure Social History Code Duration Value Status Description Data Source(s ) Smoking 10/17/2019 Never smoked completed Never smoked LUPE 01:00:00 PM EDT tobacco (finding) tobacco (find ing) ([facility] [facility] and Infectious Disease) Smoking 03/03/2019 Never smoked completed Never smoked LU[facility] 11:30:00 AM EST tobacco (finding) tobacco (find ing) ([facility] Medicine and Infectious Disease) Smoking 01/02/2019 Denies Ever completed Denies Ever [place] [facility] 12:01:00 PM EST Smoked Smoked Medical C enter Smoking 01/02/2019 Denies Ever completed Denies Ever [place] [facility] 11:45:00 AM EST Smoked Smoked Medical C enter Smoking 11/04/2018 Denies Ever completed Denies Ever [facility] 04:28:00 PM EDT Smoked Smoked Medical C enter Smoking 11/04/2018 Denies Ever completed Denies Ever [facility] 04:02:00 PM EDT Smoked Smoked Medical C enter Assertion Full-time completed Full-time LUPE employment employment ([facility] (finding) (finding) Medicine and Infectious Disease) Assertion Single person completed Single person LUPE (finding) (finding) ([facility] Medicine and Infectious Disease) Assertion Finding relating completed Finding relating GR EENWAY to drug misuse to drug misuse ([facility] behavior behavior Medicine and (finding) (finding) Infectious Disease) Assertion Tobacco user completed Tobacco user LUPE (finding) (finding) ([facility] Medicine and Infectious Disease) Assertion Finding of completed Finding of LUPE alcohol intake alcohol intake ([facility] (finding) (finding) Medicine and Infectious Disease) Smoking Unknown if ever completed Unknown if ever ALONSO RUSSELL smoked smoked ([facility] Medicine and Infectious Disease) Vital Signs ID Date Data Source UNK Name Value Range Interpretation Code Description Data Source(s) Body surface area 2.06 m2 2.06 m2 GREENWA Y Derived from ([facility] formula Medicine and Infectious Disease) Body mass index 25.0 kg/m2 25.0 kg/m2 LUPE (BMI) [Ratio] ([facility] Medicine and Infectious Disease) Body weight 184 [lb_av] 184 [lb_av] LUPE ([facility] Medicine and Infectious Disease) Body height 72 [in_i] 72 [in_i] LUPE ([facility] Medicine and Infectious Disease) Body temperature 97.8 [degF] 97.8 [degF] [facility] AY ([facility] Medicine and Infectious Disease) Respiratory rate 18 /min 18 /min LUPE ([facility] Medicine and Infectious Disease) Heart rate 70 /min 70 /min LUPE ([facility] Medicine and Infectious Disease) Diastolic blood 82 mm[Hg] 82 mm[Hg] LUPE pressure ([facility] Medicine and Infectious Disease) Systolic blood 130 mm[Hg] 130 mm[Hg] LUPE pressure ([facility] Medicine and Infectious Disease) Body surface area 2.04 m2 2.04 m2 GREENWA Y Derived from ([facility] formula Medicine and Infectious Disease) Body mass index 24.4 kg/m2 24.4 kg/m2 LUPE (BMI) [Ratio] ([facility] Medicine and Infectious Disease) Body weight 180 [lb_av] 180 [lb_av] LUPE ([facility] Medicine and Infectious Disease) Body height 72 [in_i] 72 [in_i] LUPE ([facility] Medicine and Infectious Disease) Body temperature 98.4 [degF] 98.4 [degF] GREENW AY ([facility] Medicine and Infectious Disease) Respiratory rate 18 /min 18 /min LUPE ([facility] Medicine and Infectious Disease) Heart rate 66 /min 66 /min LUPE ([facility] [facility] and Infectious Disease) Diastolic blood 78 mm[Hg] 78 mm[Hg] LUPE pressure ([facility] Medicine and Infectious Disease) Systolic blood 120 mm[Hg] 120 mm[Hg] LUPE pressure ([facility] Medicine and Infectious Disease) Respiratory rate 18 /min 18 /min LUPE ([facility] Medicine and Infectious Disease) Heart rate 68 /min 68 /min COY ([facility] Medicine and Infectious Disease) Diastolic blood 80 mm[Hg] 80 mm[Hg] LUPE pressure ([facility] Medicine and Infectious Disease) Systolic blood 120 mm[Hg] 120 mm[Hg] LUPE pressure ([facility] Medicine and Infectious Disease) Body temperature [id number] Jenise [facility] Respiratory rate 17 /min 17 /min [facility] Oxygen saturation 98 % 98 % [facility] Arterial blood [facility] by Pulse oximetry Heart rate 67 /min 67 /min [facility] Diastolic blood 54 mm[Hg] 54 mm[Hg] [facility] Systolic blood 129 mm[Hg] 129 mm[Hg] [facility] Body weight 82.230522 82.955605 kg [facility] Measured kg [facility] [place] Body temperature 36.088827 36.369918 Jen[facility] Respiratory rate 18 /min 18 /min [facility] Oxygen saturation 99 % 99 % [facility] Arterial blood [facility] by Pulse oximetry Heart rate 71 /min 71 /min [facility] Body height 183.928017 183.926931 cm [facility] [place] Diastolic blood 87 mm[Hg] 87 mm[Hg] [facility] Systolic blood 150 mm[Hg] 150 mm[Hg] [facility] Body mass index 24.4 kg/m2 24.4 kg/m2 [facility] (BMI) [Ratio] [facility] Patient Treatment Plan of Care Planned Activity Planned Date Details Description Data Source (s) Acyclovir 0.05 MG/MG 02/02/2019 12:00:[address] [facility] Topical Ointment [facility] Medicine and Infectious Dise ase) Acyclovir 400 MG Oral [facility] Acyclovir 0.05 MG/MG [facility] Topical Ointment [place] Acyclovir 800 MG Oral [facility]
[2019-11-14] MEDS: D5-NS + 20 MEQ KCL - 20 MEQ/1,000 ML INFUS.BAG IV SCH (21:18)
[2019-11-15] MEDS: oxyCODONE HCL 5 MG TABLET PO PRN ×3 (00:10→21:34)
[2019-11-15] MEDS: D5-NS + 20 MEQ KCL - 20 MEQ/1,000 ML INFUS.BAG IV SCH (06:22)
[2019-11-15] MEDS ORDERED: D5-NS + 20 MEQ KCL - 20 MEQ/1,000 ML INFUS.BAG IV SCH (06:31)
[2019-11-15 07:28] LABS: BASO % 0.2 % (0-2.0); HEMOGLOBIN 12.4 GM/dL (11.7-16.9); LYMPH % 40.1 % (8-40); MCH 29.4 pg (25.7-33.7); MCHC 32.6 g/dl (32.0-35.9); MEAN CELL VOLUME 90.2 fl (80-96); MEAN PLT VOLUME 7.8 fl (7.5-11.1); MONO % 7.4 % (3.8-10.2); NEUT % 50.3 % (42.8-82.8); PLATELET COUNT 223 K/MM3 (134-434); RBC 4.21 M/mm3 (4.00-5.60); RDW 13.5 % (11.9-15.9); WHITE BLOOD COUNT 7.1 K/mm3 (4.0-10.0)
[2019-11-15 07:59] LABS: BILIRUBIN,TOTAL 0.2 mg/dL (0.2-1); BLOOD UREA NITROGEN 22.2 mg/dL (7-18); CALCIUM 8.4 mg/dL (8.5-10.1); CREATININE 1.1 mg/dL (0.55-1.3); TOT PROT 5.9 g/dl (6.4-8.2)
--- NOTE | 2019-11-15 08:14 | PN ---
Progress Note, Physician Chief Complaint: Patient seen and examined at the bedside, no acute events from last night, afebrile. History of Present Illness: This 34 yr old male with PMH of s/p epididymal cyst resection on 10/25/19 admitted via ER with an acute syncope and collapse, hypokalemia, prerenal azotemia, and cardiac arrhythmia (PVC's). - Current Medication List Current Medications: Active Medications Acetaminophen (Tylenol -) 325 mg PO Q6H PRN PRN Reason: PAIN LEVEL 6-10 Last Admin: 11/15/19 00:00 Dose: 325 mg Documented by: Dextrose/Sodium Chloride (Dextrose 5%-Normal Saline+20 Meq Kcl -) 20 meq in 1,000 mls @ 83 mls/hr IV ASDIR JOSE ARMANDO Last Admin: 11/15/19 06:51 Dose: Not Given Documented by: Oxycodone HCl (Roxicodone -) 5 mg PO Q6H PRN PRN Reason: PAIN LEVEL 6-10 Last Admin: 11/15/19 00:10 Dose: 5 mg Documented by: - Objective Vital Signs: Vital Signs Temperature 97.7 F 11/15/19 05:00 Pulse Rate 65 11/15/19 05:00 Respiratory Rate 18 11/15/19 05:00 Blood Pressure 118/66 11/15/19 05:00 O2 Sat by Pulse Oximetry (%) 98 11/15/19 05:00 Constitutional: Yes: Well Nourished, No Distress, Calm Eyes: Yes: Conjunctiva Clear, EOM Intact HENT: Yes: Atraumatic, Normocephalic Neck: Yes: Supple, Trachea Midline Cardiovascular: Yes: Regular Rate and Rhythm Respiratory: Yes: Regular, CTA Bilaterally Gastrointestinal: Yes: Normal Bowel Sounds, Soft ...Rectal Exam: Yes: Deferred Genitourinary: Yes: WNL Breast(s): Yes: WNL Musculoskeletal: Yes: WNL Extremities: Yes: WNL Edema: No Peripheral Pulses WNL: Yes Integumentary: Yes: WNL Neurological: Yes: WNL ...Motor Strength: WNL Psychiatric: Yes: WNL Labs: CBC, BMP 11/15/19 06:36 11/15/19 06:36 - ....Imaging Other: Report Reviewed (lab data reviewed) Problem List - Problems (1) Cochlear otosclerosis, right ear Code(s): H80.21 - COCHLEAR OTOSCLEROSIS, RIGHT EAR (2) CHAIM (acute kidney injury) Code(s): N17.9 - ACUTE KIDNEY FAILURE, UNSPECIFIED (3) Frequent PVCs Code(s): I49.3 - VENTRICULAR PREMATURE DEPOLARIZATION (4) Hypokalemia Code(s): E87.6 - HYPOKALEMIA (5) Syncope and collapse Code(s): R55 - SYNCOPE AND COLLAPSE (6) Dysuria Code(s): R30.0 - DYSURIA (7) Epididymitis Code(s): N45.1 - EPIDIDYMITIS (8) Herpes genitalis in men Code(s): A60.02 - HERPESVIRAL INFECTION OF OTHER MALE GENITAL ORGANS (9) Otitis externa Code(s): H60.90 - UNSPECIFIED OTITIS EXTERNA, UNSPECIFIED EAR (10) Acute prerenal azotemia Code(s): R79.89 - OTHER SPECIFIED ABNORMAL FINDINGS OF BLOOD CHEMISTRY Assessment/Plan Assessment/plan: acute syncope and collapse, acute cardiac arrhythmia (PVC's), acute hypokalemia, acute prerenal azotemia, mild focal bilateral frontoparietal subcortical white matter hypodensity without mass effect on ct scan of the head; IV fluids for hydration; IV potassium chloride for hypokalemia; MRI of the brain pending; consult to Cardiology pending; elevated bun and cr trending down; physical therapy for general conditioning; out of bed in chair as tolerated.
--- NOTE | 2019-11-15 10:50 | CON.CARD ---
Consult Consult Specialty:: Cardiology - History of Present Illness History of Present Illness: 34yo male who is three weeks s/p epididemal cyst resection presents after a witnessed syncopal episode. Patient states he was standing and talking, looked up, everything went black, and he woke up on the floor. He states that the family member who witnessed it said he did not have any jerky movements, but did hit his head. He attributes this episode to not eating or drinking all day, being on his feet too much after being on two week rest after surgery, taking a full percocet rather than a half, and his daily marijuana. No headache, n/v, chest pain, SOB, neck pain. ROS negative - History Source History Provided By: Patient, Medical Record - Past Medical History [employer]: No: Alzheimer's, CVA, Dementia, Migraine, Multiple Sclerosis, Peripheral Neuropathy, Parkinson's, Seizure, Syncope, TIA, Vertigo, Other Cardio/Vascular: No: AFIB, Aneurysm, Aortic Insufficiency, Aortic Stenosis, CAD, CHF, Deep Vein Thrombosis, HTN, Hyperlipdemia, SD, Mitral Insufficiency, Mitral Stenosis, Murmur, Pulmonary Hypertension, Other Pulmonary: No: Asthma, Bronchitis, Cancer, COPD, O2 Dependent, Pneumonia, Previously Intubated, Pulmonary Embolus, Pulmonary Fibrosis, Sleep Apnea, Other Gastrointestinal: No: Ascites, Cancer, Constipation, Crohn's Disease, Diverticulitis, Diverticulosis, Esophageal Varices, Gastritis, GERD, GI Bleed, Hemorrhoids, Hiatal Hernia, Inflamatory Bowel Disease, Irritable Bowel Disease, Pancreatitis, Peptic Ulcer Disease, Ulcerative Colitis, Other Hepatobiliary: No: Cirrhosis, Cholelithiasis, Cholecystitis, Choled ocholithiasis, Hepatitis A, Hepatitis B, Hepatitis C, Other Renal/: No: Renal Failure, Renal Inusuff, BPH, Cancer, Hematuria, Hemodialysis, Neurogenic Bladder, Renal Calculi, UTI, Other Infectious Disease: No: AIDS, C-Diff, Herpes Zoster, HIV, MRSA, STD's, Tuberculosis, VREF, Other Psych: No: Addictions, Anxiety, Bipolar, Depression, Panic, Psychosis, Schizophrenia, Other Musculoskeletal: No: Bursitis, Chronic low back pain, Hemiparesis, Hemiplegia, Osteoarthritis, Paraplegia, Other Rheumatology: No: Fibromyalgia, Gout, Lupus, Rheumatoid Arthritis, Sarcoidosis, Vasculitis, Other ENT: No: Allergic Rhinitis, Sinusitis, Other Endocrine: No: Eyal's Disease, [place]'s Disease, Diabetes Insipidus, Diabetes Mellitus, Hyperparathyroidism, Hyperthyroidism, Hypothyroidism, Osteopenia, SIADH, Other Dermatology: No: Basal Cell, Cellulitis, Eczema, Melanoma, Psoriasis, Squamous Cell, Other - Past Surgical History Past Surgical History: Yes: Appendectomy, Cystectomy (epidermal cyst resection) - Alcohol/Substance Use Hx Alcohol Use: No History of Substance Use: reports: Marijuana - Smoking History Smoking history: Never smoked Have you smoked in the past 12 months: No Home Medications - Allergies Allergies/Adverse Reactions: Allergies Allergy/AdvReac Type Severity Reaction Status Date / Time No Known Allergies Allergy Verified 11/14/19 15:50 - Home Medications Home Medications: Ambulatory Orders Ibuprofen [Motrin -] 600 mg PO TID 11/14/19 Oxycodone HCl/Acetaminophen [Percocet 5-325 mg Tablet] 1 tab PO 11/14/19 Review of Systems - Review of Systems Constitutional: reports: No Symptoms Eyes: reports: No Symptoms HENT: reports: No Symptoms Neck: reports: No Symptoms Cardiovascular: reports: No Symptoms Respiratory: reports: No Symptoms Gastrointestinal: reports: No Symptoms Genitourinary: reports: No Symptoms Breasts: reports: No Symptoms Reported Musculoskeletal: reports: No Symptoms Integumentary: reports: No Symptoms Neurological: reports: Syncope Endocrine: reports: No Symptoms Hematology/Lymphatic: reports: No Symptoms Psychiatric: reports: No Symptoms Vital Signs: Vital Signs Temperature 97.7 F 11/15/19 09:08 Pulse Rate 65 11/15/19 09:08 Respiratory Rate 18 11/15/19 09:08 Blood Pressure 127/82 11/15/19 09:08 O2 Sat by Pulse Oximetry (%) 99 11/15/19 09:08 Constitutional: Yes: Well Nourished, No Distress, Calm Eyes: Yes: WNL, Conjunctiva Clear, EOM Intact HENT: Yes: WNL, Atraumatic, Normocephalic Neck: Yes: WNL, Supple, Trachea Midline Respiratory: Yes: WNL, Regular, CTA Bilaterally Gastrointestinal: Yes: WNL, Normal Bowel Sounds Renal/: Yes: WNL Cardiovascular: Yes: WNL, Regular Rate and Rhythm Musculoskeletal: Yes: WNL Extremities: Yes: WNL Integumentary: Yes: WNL Neurological: Yes: WNL, Alert, Oriented ...Motor Strength: WNL Psychiatric: Yes: WNL, Alert, Oriented - Other Data Labs, Other Data: CBC, BMP 11/15/19 06:36 11/15/19 06:36 Troponin, BNP 11/14/19 16:20 Troponin I < 0.02 Troponin, BNP 11/14/19 16:20 Troponin I < 0.02 Problem List - Problems (1) CHAIM (acute kidney injury) Code(s): N17.9 - ACUTE KIDNEY FAILURE, UNSPECIFIED (2) Acute prerenal azotemia Code(s): R79.89 - OTHER SPECIFIED ABNORMAL FINDINGS OF BLOOD CHEMISTRY (3) Cochlear otosclerosis, right ear Code(s): H80.21 - COCHLEAR OTOSCLEROSIS, RIGHT EAR (4) Frequent PVCs Code(s): I49.3 - VENTRICULAR PREMATURE DEPOLARIZATION (5) Hypokalemia Code(s): E87.6 - HYPOKALEMIA (6) Syncope and collapse Code(s): R55 - SYNCOPE AND COLLAPSE (7) Dysuria Code(s): R30.0 - DYSURIA (8) Epididymitis Code(s): N45.1 - EPIDIDYMITIS (9) Herpes genitalis in men Code(s): A60.02 - HERPESVIRAL INFECTION OF OTHER MALE GENITAL ORGANS (10) Otitis externa Code(s): H60.90 - UNSPECIFIED OTITIS EXTERNA, UNSPECIFIED EAR Assessment/Plan 34yo male who is three weeks s/p epididemal cyst resection presents after a witnessed syncopal episode. Plan; ECHO Telemetry serial EKGs Urine Toxicology
--- NOTE | 2019-11-15 11:06 | EKG ---
Test Reason : Blood Pressure : / mmHG Vent. Rate : 081 BPM Atrial Rate : 081 BPM P-R Int : 148 ms QRS Dur : 096 ms QT Int : 372 ms P-R-T Axes : 075 080 067 degrees QTc Int : 432 ms SINUS RHYTHM WITH FREQUENT PREMATURE VENTRICULAR COMPLEXES MINIMAL VOLTAGE CRITERIA FOR LVH, MAY BE NORMAL VARIANT NONSPECIFIC T WAVE ABNORMALITY ABNORMAL ECG NO PREVIOUS ECGS AVAILABLE Confirmed by MD Azeem, Anuj ([id number]) on 11/15/2019 11:05:51 AM Referred By: Confirmed By:Anuj Gann MD
[2019-11-15 13:03] LABS: COCAINE, UR NEGATIVE ng/ml (CUTOFF=300); METHADONE, UR NEGATIVE ng/ml (CUTOFF=300); OPIATES, URI NEGATIVE ng/ml (CUTOFF=300); PHENCYCLIDINE,URINE NEGATIVE ng/ml (CUTOFF=25)
--- NOTE | 2019-11-15 13:07 | ECHO ---
Name: CHIARARONALDMEKA Exam:Adult Echocardiogram Study Date: 11/15/2019 11:45 AM Age: 34 yrs Reason For Study: EF Height: 72 in Weight: 180 lb BSA: 2.0 m2 MMode/2D Measurements & Calculations IVSd: 0.98 cm Ao root diam: 3.6 cm LVIDd: 4.8 cm LA dimension: 2.5 cm LVIDs: 3.2 cm ACS: 2.1 cm LVPWd: 0.88 cm EDV(Teich): 108.0 ml LVOT diam: 2.2 cm ESV(Teich): 40.8 ml LAV (MOD-bp): 56.0 ml TAPSE: 1.8 cm RV S Otoniel: 11.5 cm/sec Doppler Measurements & Calculations MV E max otoniel: 99.2 cm/sec Ao V2 max: 114.0 cm/sec MV A max otoniel: 46.9 cm/sec Ao max P.2 mmHg MV E/A: 2.1 Ao V2 mean: 79.6 cm/sec MV dec time: 0.22 sec Ao mean P.8 mmHg Ao V2 VTI: 22.4 cm MARQUES(I,D): 3.0 cm2 MARQUES(V,D): 3.2 cm2 LV V1 max P.7 mmHg SV(LVOT): 66.9 ml LV V1 mean P.7 mmHg LV V1 max: 95.8 cm/sec LV V1 mean: 59.2 cm/sec LV V1 VTI: 17.7 cm TR max otoniel: 214.5 cm/sec PA V2 max: 92.3 cm/sec TR max P.4 mmHg PA max P.4 mmHg PA acc slope: 473.6 cm/sec2 PA acc time: 0.13 sec PI end-d otoniel: 80.1 cm/sec Med Peak E' Otoniel: 10.8 cm/sec Med E/e': 9.2 Lat Peak E' Otoniel: 16.0 cm/sec Lat E/e': 6.2 PA pr(Accel): 20.4 mmHg Procedure A two-dimensional transthoracic echocardiogram with color flow and Doppler was performed. The patient was in normal sinus rhythm during the exam. Left Ventricle The left ventricular size, thickness and function are normal. Ejection Fraction = 60%. The transmitra l spectral Doppler flow pattern is normal for age. Right Ventricle The right ventricle is normal in size and function. Atria Normal left and right atrial size and function. Mitral Valve The mitral valve is grossly normal. There is trace mitral regurgitation. Tricuspid Valve The tricuspid valve is not well visualized, but is grossly normal. There is trace tricuspid regurgita tion. There was insufficient TR detected to calculate RV systolic pressure. Aortic Valve The aortic valve is trileaflet. No hemodynamically significant valvular aortic stenosis. Pulmonic Valve The pulmonic valve is not well seen, but is grossly normal. Great Vessels The aortic root is normal size. Pericardium/Pleura There is no pericardial effusion. Interpretation Summary The left ventricular size, thickness and function are normal The transmitral spectral Doppler flow pattern is normal for age. There is trace mitral regurgitation. There is trace tricuspid regurgitation. There was insufficient TR detected to calculate RV systolic pressure. No hemodynamically significant valvular aortic stenosis. There is no pericardial effusion. MD Anuj Gann 11/15/2019 01:06 PM
[2019-11-15 13:10] LABS: URINE AMPHETAMINES NEGATIVE ng/ml (CUTOFF=500); URINE BARBITURATES NEGATIVE ng/ml (CUTOFF=200); URINE BENZODIAZEPINES NEGATIVE ng/ml (CUTOFF=200)
[2019-11-15] MEDS: ACETAMINOPHEN 325 MG TABLET (FP) PO PRN ×3 (15:39→21:34)
[2019-11-15] MEDS: ENOXAPARIN NA (PORCINE) 40 MG/0.4 ML DISP.SYRIN SQ SCH (17:53)
[2019-11-16 07:00] LABS: BASO % 0.3 % (0-2.0); HEMATOCRIT 39.8 % (35.4-49); HEMOGLOBIN 13.1 GM/dL (11.7-16.9); LYMPH % 39.7 % (8-40); MCH 29.5 pg (25.7-33.7); MEAN CELL VOLUME 89.4 fl (80-96); MEAN PLT VOLUME 7.7 fl (7.5-11.1); MONO % 6.5 % (3.8-10.2); NEUT % 51.5 % (42.8-82.8); PLATELET COUNT 233 K/MM3 (134-434); RBC 4.45 M/mm3 (4.00-5.60); RDW 13.3 % (11.9-15.9); WHITE BLOOD COUNT 5.8 K/mm3 (4.0-10.0)
--- NOTE | 2019-11-16 07:03 | PN ---
Progress Note, Physician History of Present Illness: Mr. Oviedo is a 34yo black male who is three weeks s/p epididemal cyst resection and now presents after a witnessed syncopal episode. Patient states he was standing and talking to his mother, who was in a care home,when he looked up and noted "everything went black"; he woke up on the floor. He states that the family member who witnessed it said he did not have any jerky movements, but did hit his head. He attributes this episode to not eating or drinking all day, being on his feet too much after being on two- week rest after surgery, taking a full percocet rather than a half,as well as his daily marijuana, and feeling anxious over his mother's health (recent VA). No headache, n/v, chest pain, SOB, neck pain. ROS negative - Current Medication List Current Medications: Active Medications Acetaminophen (Tylenol -) 325 mg PO Q6H PRN PRN Reason: PAIN LEVEL 6-10 Last Admin: 11/15/19 21:34 Dose: 325 mg Documented by: Enoxaparin Sodium (Lovenox -) 40 mg SQ DAILY [facility] Last Admin: 11/15/19 17:53 Dose: 40 mg Documented by: Dextrose/Sodium Chloride (Dextrose 5%-Normal Saline+20 Meq Kcl -) 20 meq in 1,000 mls @ 83 mls/hr IV ASDIR [facility] Last Admin: 11/15/19 06:51 Dose: Not Given Documented by: Oxycodone HCl (Roxicodone -) 5 mg PO Q6H PRN PRN Reason: PAIN LEVEL 6-10 Last Admin: 11/15/19 21:34 Dose: 5 mg Documented by: - Objective Vital Signs: Vital Signs Temperature 98.2 F 11/16/19 06:00 Pulse Rate 69 11/16/19 06:00 Respiratory Rate 20 11/16/19 06:00 Blood Pressure 119/74 11/16/19 06:00 O2 Sat by Pulse Oximetry (%) 99 11/16/19 06:00 Constitutional: Yes: Anxious Eyes: Yes: WNL HENT: Yes: WNL Neck: Yes: WNL Cardiovascular: Yes: Regular Rate and Rhythm Respiratory: Yes: WNL Gastrointestinal: Yes: Soft ...Rectal Exam: Yes: Deferred Genitourinary: No: Anuria Breast(s): Yes: WNL Musculoskeletal: Yes: WNL Extremities: Yes: WNL Edema: No Peripheral Pulses WNL: Yes Integumentary: Yes: WNL Neurological: Yes: WNL ...Motor Strength: WNL Psychiatric: Yes: Alert, Oriented, Other (anxiety) - ....Imaging Chest X-ray: Image Reviewed EKG: Image Reviewed Other: Image Reviewed (telemetry) Assessment/Plan Mr. Oviedo is a 34yo black male who is three weeks s/p epididemal cyst resection; now presents after a witnessed syncopal episode. Noted dehydrated and hypokalemic initially; he had taken more Percocet than usual, as well as marijuana that day. Notes that he was walking around all day, went to visit his mother in the [place], and did not have anything to eat or drink. No prior history of syncope/dizziness. No exertional symptoms with exercise/sports (pt regularly does cardio and weight lifting until the recent surgery; no chest pain or dyspnea; no sycnope).. No known family history of early cardiac . Pt does endorse a couple episodes of watery stool yesterday that has resolved. Mother had VA age 65; hx DM and HTN. Syncope and PVCs: etiology likely multifactorial, including pain, dehydration, weakness, anxiety, hypokalemia, opiates. BUN/Cr, hypokalemia improved after fluids and electrolytes. Opiates (took extra dose on day of syncopal episode) EKG (initial): normal sinus rhythm; frequent PVCs. Telemetry: NSR; occasional palpitations until about 6 am today; virtually none since then (checked at 10am). TNI <0.02 x 2. ECHO: normal LVEF, normal chamber sizes and wall thicknesses; trace MR and TR Urine Toxicology: + marijuana Anxiety (exacerbated by mother's illness, and his own worry about his health). Rec: Titrate off opiates (e.g., pt is agreeable to trying [id number]-trp-ibbes Tylenol). Encourage PO intake. F/u electrolytes, BUN/Cr f/u BP (mildly elevated yesterday). No orthostatic vital sign abnormalities today. Pt. is under surgical orders to do no physical "straining" exercises for 6 weeks after the surgery; he feels pain in the surgical area if he walks. Will have treadmill stress test done as outpatient when he has recovered.
[2019-11-16 07:30] LABS: ANION GAP 7 MMOL/L (8-16); BLOOD UREA NITROGEN 17.4 mg/dL (7-18); CALCIUM 9.1 mg/dL (8.5-10.1); CHLORIDE 104 mmol/L (98-107); CO2 27 mmol/L (21-32); GLUCOSE,RANDOM 86 mg/dL (74-106); POTASSIUM 3.5 mmol/L (3.5-5.1); SODIUM 138 mmol/L (136-145)
[2019-11-16 07:33] LABS: CREATININE 1.1 mg/dL (0.55-1.3)
--- NOTE | 2019-11-16 08:24 | PN ---
Progress Note, Physician Chief Complaint: Patient seen and examined at the bedside, no acute events from last night, no dizziness. History of Present Illness: This 34 yr old male with PMH of s/p epididymal cyst resection admitted via ER with an acute syncope and collapse, concussion without LOC, prer enal azotemia, hypokalemia, and cardiac arrhythmia (PVC's). - Current Medication List Current Medications: Active Medications Acetaminophen (Tylenol -) 325 mg PO Q6H PRN PRN Reason: PAIN LEVEL 6-10 Last Admin: 11/15/19 21:34 Dose: 325 mg Documented by: Enoxaparin Sodium (Lovenox -) 40 mg SQ DAILY [facility] Last Admin: 11/15/19 17:53 Dose: 40 mg Documented by: Dextrose/Sodium Chloride (Dextrose 5%-Normal Saline+20 Meq Kcl -) 20 meq in 1,000 mls @ 83 mls/hr IV ASDIR [facility] Last Admin: 11/15/19 06:51 Dose: Not Given Documented by: Oxycodone HCl (Roxicodone -) 5 mg PO Q6H PRN PRN Reason: PAIN LEVEL 6-10 Last Admin: 11/15/19 21:34 Dose: 5 mg Documented by: - Objective Vital Signs: Vital Signs Temperature 98.2 F 11/16/19 06:00 Pulse Rate 69 11/16/19 06:00 Respiratory Rate 20 11/16/19 06:00 Blood Pressure 119/74 11/16/19 06:00 O2 Sat by Pulse Oximetry (%) 99 11/16/19 06:00 Constitutional: Yes: Well Nourished, No Distress, Calm Eyes: Yes: Conjunctiva Clear, EOM Intact HENT: Yes: Atraumatic, Normocephalic Neck: Yes: Supple, Trachea Midline Cardiovascular: Yes: Regular Rate and Rhythm Respiratory: Yes: Regular, CTA Bilaterally Gastrointestinal: Yes: Normal Bowel Sounds, Soft ...Rectal Exam: Yes: Deferred Genitourinary: Yes: WNL Breast(s): Yes: WNL Musculoskeletal: Yes: WNL Extremities: Yes: WNL Edema: No Peripheral Pulses WNL: Yes Integumentary: Yes: WNL Neurological: Yes: WNL ...Motor Strength: WNL Psychiatric: Yes: WNL Labs: CBC, BMP 11/16/19 06:41 11/16/19 06:41 - ....Imaging Other: Report Reviewed (lab data reviewed) Problem List - Problems (1) Cochlear otosclerosis, right ear Code(s): H80.21 - COCHLEAR OTOSCLEROSIS, RIGHT EAR (2) CHAIM (acute kidney injury) Code(s): N17.9 - ACUTE KIDNEY FAILURE, UNSPECIFIED (3) Frequent PVCs Code(s): I49.3 - VENTRICULAR PREMATURE DEPOLARIZATION (4) Hypokalemia Code(s): E87.6 - HYPOKALEMIA (5) Syncope and collapse Code(s): R55 - SYNCOPE AND COLLAPSE (6) Dysuria Code(s): R30.0 - DYSURIA (7) Epididymitis Code(s): N45.1 - EPIDIDYMITIS (8) Herpes genitalis in men Code(s): A60.02 - HERPESVIRAL INFECTION OF OTHER MALE GENITAL ORGANS (9) Otitis externa Code(s): H60.90 - UNSPECIFIED OTITIS EXTERNA, UNSPECIFIED EAR (10) Acute prerenal azotemia Code(s): R79.89 - OTHER SPECIFIED ABNORMAL FINDINGS OF BLOOD CHEMISTRY Assessment/Plan Assessment/plan: acute syncope and collapse, concussion without LOC, hypokalemia, cardiac arrhythmia (PVC's), mild focal bilateral frontoparietal subcortical white matter hypodensity without mass effect on ct of the head; scattered areas of gliosis in the white matter of both cerebral hemispheres sequela most probably to long standing HTN or small vessel arteriosclerosis on MRI of the brain; IV fluids for prerenal azotemia; IV potassium chloride for hypokalemia; SQ Lovenox for DVT prophylaxis; d/c oxycodone; consult to Neurology pending.
[2019-11-16 08:41] LABS: CHOLESTEROL 166 mg/dL (50-200); HDL CHOLESTEROL 48 mg/dL (40-60); LDL CHOLESTEROL (ONLY SJRH) 99 mg/dL (5-100); TRIGLYCERIDES 107 mg/dL (0-150)
[2019-11-16] MEDS: ENOXAPARIN NA (PORCINE) 40 MG/0.4 ML DISP.SYRIN SQ SCH (09:31)
[2019-11-16] MEDS: D5-NS + 40 MEQ KCL - 40 MEQ/1,000 ML INFUS.BAG IV SCH ×2 (09:31→20:20)
--- NOTE | 2019-11-16 09:55 | EKG ---
Test Reason : Blood Pressure : / mmHG Vent. Rate : 074 BPM Atrial Rate : 074 BPM P-R Int : 140 ms QRS Dur : 096 ms QT Int : 366 ms P-R-T Axes : 000 074 069 degrees QTc Int : 406 ms NORMAL SINUS RHYTHM MINIMAL VOLTAGE CRITERIA FOR LVH, MAY BE NORMAL VARIANT BORDERLINE ECG WHEN COMPARED WITH ECG OF 14-NOV-2019 16:32, PREMATURE VENTRICULAR COMPLEXES ARE NO LONGER PRESENT Confirmed by BALBIR IRIZARRY, LOUISE ([id number]) on 11/16/2019 9:55:09 AM Referred By: ILDA HOWARD Confirmed By:LOUISE MCGREGOR MD
--- NOTE | 2019-11-16 15:55 | CON.NEURO ---
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, CVA, Dementia, Migraine, Multiple Sclerosis, Peripheral Neuropathy, Parkinson's, Seizure, Syncope, TIA, Vertigo, Other Cardio/Vascular: No: AFIB, Aneurysm, Aortic Insufficiency, Aortic Stenosis, CAD, CHF, Deep Vein Thrombosis, HTN, Hyperlipdemia, SD, Mitral Insufficiency, Mitral Stenosis, Murmur, Pulmonary Hypertension, Other Pulmonary: No: Asthma, Bronchitis, Cancer, COPD, O2 Dependent, Pneumonia, Previously Intubated, Pulmonary Embolus, Pulmonary Fibrosis, Sleep Apnea, Other Gastrointestinal: No: Ascites, Cancer, Constipation, Crohn's Disease, Diverticulitis, Diverticulosis, Esophageal Varices, Gastritis, GERD, GI Bleed, Hemorrhoids, Hiatal Hernia, Inflamatory Bowel Disease, Irritable Bowel Disease, Pancreatitis, Peptic Ulcer Disease, Ulcerative Colitis, Other Hepatobiliary: No: Cirrhosis, Cholelithiasis, Cholecystitis, Choledocholithiasis, Hepatitis A, Hepatitis B, Hepatitis C, Other Renal/: No: Renal Failure, Renal Inusuff, BPH, Cancer, Hematuria, Hemodialysis, Neurogenic Bladder, Renal Calculi, UTI, Other Infectious Disease: No: AIDS, C-Diff, Herpes Zoster, HIV, MRSA, STD's, Tuberculosis, VREF, Other Psych: No: Addictions, Anxiety, Bipolar, Depression, Panic, Psychosis, Schizophrenia, Other Musculoskeletal: No: Bursitis, Chronic low back pain, Hemiparesis, Hemiplegia, Osteoarthritis, Paraplegia, Other Rheumatology: No: Fibromyalgia, Gout, Lupus, Rheumatoid Arthritis, Sarcoidosis, Vasculitis, Other ENT: No: Allergic Rhinitis, Sinusitis, Other Endocrine: No: Eyal's Disease, Alex's Disease, Diabetes Insipidus, Diabetes Mellitus, Hyperparathyroidism, Hyperthyroidism, Hypothyroidism, Osteopenia, SIADH, Other Dermatology: No: Basal Cell, Cellulitis, Eczema, Melanoma, Psoriasis, Squamous Cell, Other - Past Surgical History Past Surgical History: Yes: Appendectomy, Cystectomy (epidermal cyst resection) - Alcohol/Substance Use Hx Alcohol Use: No History of Substance Use: reports: Marijuana - Smoking History Smoking history: Never smoked Have you smoked in the past 12 months: No Home Medications - Allergies Allergies/Adverse Reactions: Allergies Allergy/AdvReac Type Severity Reaction Status Date / Time No Known Allergies Allergy Verified 11/14/19 15:50 - Home Medications Home Medications: Ambulatory Orders Ibuprofen [Motrin -] 600 mg PO TID 11/14/19 Oxycodone HCl/Acetaminophen [Percocet 5-325 mg Tablet] 1 tab PO 11/14/19 Family Medical History Family History: Unremarkable Review of Systems - Review of Systems Eyes: reports: No Symptoms HENT: reports: No Symptoms Neurological: reports: Dizziness, Headache, Incoordination Physical Exam-Neuro Vital Signs: Vital Signs Temperature 98.1 F 11/16/19 13:00 Pulse Rate 69 11/16/19 13:00 Respiratory Rate 20 11/16/19 13:00 Blood Pressure 140/81 11/16/19 13:00 O2 Sat by Pulse Oximetry (%) 99 11/16/19 09:30 Constitutional: Yes: Well Nourished Neck: Yes: WNL Cardiovascular: Yes: WNL Labs: CBC, BMP 11/16/19 06:41 11/16/19 06:41 - Neuro Exam Level Of Consciousness: Yes: Oriented to Person, Oriented to Place, Oriented to Time Eyes: Yes: PERRLA Speech: WNL Dominant Hand: Right Cranial Nerves II-XII Intact: Yes Gag: Present DTR's: 1+ Left Bicep, 1+ Right Bicep, 1+ Left Tricep, 1+ Right Tricep Response to light touch: Normal Response to pain prick: Normal Response to temperature: Normal Motor Strength: 3/5: Left Arm, Right Arm, Left Leg, Right Leg Gait: Deferred Imaging - Results Cat Scan: Image Reviewed MRI: Image Reviewed Problem List - Problems (1) Frequent PVCs Code(s): I49.3 - VENTRICULAR PREMATURE DEPOLARIZATION (2) Syncope and collapse Code(s): R55 - SYNCOPE AND COLLAPSE Assessment/Plan Doubt a seizure episode fall precaution Monitor the Holter Check orthostais q shift EEG as out patient No Aspirin Thank you Shanique Patel MD [phone]
[2019-11-16] MEDS: ACETAMINOPHEN 325 MG TABLET (FP) PO PRN (18:08)
[2019-11-17 02:41] VITALS: TEMP 97.8
[2019-11-17 06:33] VITALS: BP 121/86; PULSE 65
[2019-11-17 06:51] LABS: BASO % 0.2 % (0-2.0); EOS % 1.6 % (0-4.5); HEMATOCRIT 41.7 % (35.4-49); HEMOGLOBIN 13.9 GM/dL (11.7-16.9); LYMPH % 31.2 % (8-40); MCH 29.4 pg (25.7-33.7); MCHC 33.2 g/dl (32.0-35.9); MEAN CELL VOLUME 88.5 fl (80-96); MEAN PLT VOLUME 7.6 fl (7.5-11.1); MONO % 6.1 % (3.8-10.2); NEUT % 60.9 % (42.8-82.8); PLATELET COUNT 261 K/MM3 (134-434); RBC 4.71 M/mm3 (4.00-5.60); RDW 13.3 % (11.9-15.9); WHITE BLOOD COUNT 7.1 K/mm3 (4.0-10.0)
[2019-11-17 07:15] LABS: BLOOD UREA NITROGEN 19.6 mg/dL (7-18); CALCIUM 9.6 mg/dL (8.5-10.1); CREATININE 1.1 mg/dL (0.55-1.3); POTASSIUM 4.2 mmol/L (3.5-5.1)
--- NOTE | 2019-11-17 09:04 | DS ---
Physical Examination Vital Signs: Vital Signs Temperature 97.8 F 11/17/19 06:00 Pulse Rate 65 11/17/19 06:00 Respiratory Rate 16 11/17/19 06:00 Blood Pressure 121/86 11/17/19 06:00 O2 Sat by Pulse Oximetry (%) 99 11/17/19 06:00 Constitutional: Yes: Well Nourished, No Distress, Calm Eyes: Yes: Conjunctiva Clear, EOM Intact HENT: Yes: Atraumatic, Normocephalic Neck: Yes: Supple, Trachea Midline Cardiovascular: Yes: Regular Rate and Rhythm Respiratory: Yes: Regular, CTA Bilaterally Gastrointestinal: Yes: Normal Bowel Sounds, Soft ...Rectal Exam: Yes: Deferred Renal/: Yes: WNL Breast(s): Yes: WNL Musculoskeletal: Yes: WNL Extremities: Yes: WNL Edema: No Peripheral Pulses WNL: Yes Integumentary: Yes: WNL Neurological: Yes: WNL ...Motor Strength: WNL Psychiatric: Yes: WNL Labs: CBC, BMP 11/17/19 06:12 11/17/19 06:12 Discharge Summary Problems reviewed: Yes Reason For Visit: ACUTE KIDNEY INJURY FREQUENT VENTRICULAR PREMATURE Current Active Problems CHAIM (acute kidney injury) (Acute) Acute prerenal azotemia (Acute) Cochlear otosclerosis, right ear (Acute) Frequent PVCs (Acute) Hypokalemia (Acute) Syncope and collapse (Acute) Condition: Fair - Instructions Diet, Activity, Other Instructions: Avoid excessive salt consumption. Advised to stop smoking marihuana. Avoid barbecue sauce. Encouraged to drink approx 2 quarts of fluid daily. Follow up with Dr. De La Rosa within one week. Total time spent over 30 minutes. Referrals: Asa De La Rosa MD [Primary Care Provider] - - Home Medications Comprehensive Discharge Medication List: Ambulatory Orders Ibuprofen [Motrin -] 600 mg PO TID 11/14/19 Oxycodone HCl/Acetaminophen [Percocet 5-325 mg Tablet] 1 tab PO 11/14/19
[2019-11-17] MEDS: D5-NS + 40 MEQ KCL - 40 MEQ/1,000 ML INFUS.BAG IV SCH (09:10)
--- NOTE | 2019-11-17 09:24 | PN ---
Progress Note, Physician History of Present Illness: 34yo male who is three weeks s/p epididemal cyst resection presents after a witnessed syncopal episode. Patient states he was standing and talking, looked up, everything went black, and he woke up on the floor. He states that the family member who witnessed it said he did not have any jerky movements, but did hit his head. He attributes this episode to not eating or drinking all day, being on his feet too much after being on two week rest after surgery, taking a full percocet rather than a half, and his daily marijuana. No headache, n/v, chest pain, SOB, neck pain. ROS negative - Current Medication List Current Medications: Active Medications Acetaminophen (Tylenol -) 325 mg PO Q6H PRN PRN Reason: PAIN LEVEL 6-10 Last Admin: 11/16/19 18:08 Dose: 325 mg Documented by: - Objective Vital Signs: Vital Signs Temperature 97.8 F 11/17/19 06:00 Pulse Rate 65 11/17/19 06:00 Respiratory Rate 16 11/17/19 06:00 Blood Pressure 121/86 11/17/19 06:00 O2 Sat by Pulse Oximetry (%) 99 11/17/19 06:00 Eyes: Yes: WNL, Conjunctiva Clear, EOM Intact HENT: Yes: WNL, Atraumatic, Normocephalic Neck: Yes: WNL, Supple, Trachea Midline Cardiovascular: Yes: WNL, Regular Rate and Rhythm Respiratory: Yes: WNL, Regular, CTA Bilaterally Gastrointestinal: Yes: WNL, Normal Bowel Sounds Genitourinary: Yes: WNL Musculoskeletal: Yes: WNL Extremities: Yes: WNL Edema: No Integumentary: Yes: WNL Neurological: Yes: WNL, Alert, Oriented ...Motor Strength: WNL Psychiatric: Yes: WNL Labs: CBC, BMP 11/17/19 06:12 11/17/19 06:12 Problem List - Problems (1) CHAIM (acute kidney injury) Code(s): N17.9 - ACUTE KIDNEY FAILURE, UNSPECIFIED (2) Acute prerenal azotemia Code(s): R79.89 - OTHER SPECIFIED ABNORMAL FINDINGS OF BLOOD CHEMISTRY (3) Cochlear otosclerosis, right ear Code(s): H80.21 - COCHLEAR OTOSCLEROSIS, RIGHT EAR (4) Frequent PVCs Code(s): I49.3 - VENTRICULAR PREMATURE DEPOLARIZATION (5) Hypokalemia Code(s): E87.6 - HYPOKALEMIA (6) Syncope and collapse Code(s): R55 - SYNCOPE AND COLLAPSE (7) Dysuria Code(s): R30.0 - DYSURIA (8) Epididymitis Code(s): N45.1 - EPIDIDYMITIS (9) Herpes genitalis in men Code(s): A60.02 - HERPESVIRAL INFECTION OF OTHER MALE GENITAL ORGANS (10) Otitis externa Code(s): H60.90 - UNSPECIFIED OTITIS EXTERNA, UNSPECIFIED EAR Assessment/Plan Mr. Oviedo is a 34yo black male who is three weeks s/p epididemal cyst resection; now presents after a witnessed syncopal episode. Noted dehydrated and hypokalemic initially; he had taken more Percocet than usual, as well as marijuana that day. Notes that he was walking around all day, went to visit his mother in the [place], and did not have anything to eat or drink. No prior history of syncope/d izziness. No exertional symptoms with exercise/sports (pt regularly does cardio and weight lifting until the recent surgery; no chest pain or dyspnea; no sycnope).. No known family history of early cardiac . Pt does endorse a couple episodes of watery stool yesterday that has resolved. Mother had [place] age 65; hx DM and HTN. Syncope and PVCs: etiology likely multifactorial, including pain, dehydration, weakness, anxiety, hypokalemia, opiates. BUN/Cr, hypokalemia improved after fluids and electrolytes. Opiates (took extra dose on day of syncopal episode) EKG (initial): normal sinus rhythm; frequent PVCs. Telemetry: NSR; occasional palpitations until about 6 am today; virtually none since then (checked at 10am). TNI <0.02 x 2. ECHO: normal LVEF, normal chamber sizes and wall thicknesses; trace MR and TR Urine Toxicology: + marijuana Anxiety (exacerbated by mother's illness, and his own worry about his health). Rec: Titrate off opiates (e.g., pt is agreeable to trying [id number] Tylenol). Encourage PO intake. F/u electrolytes, BUN/Cr No orthostatic vital sign abnormalities today. Pt. is under surgical orders to do no physical "straining" exercises for 6 weeks after the surgery; he feels pain in the surgical area if he walks. Will have treadmill stress test done as outpatient when he has recovered. Patient will follow in our office for a stress test .He was gibe a [facility] card with the number to schedule an appointment. He understands importance of a test. he understands risks of not following with the test whisch include but are not limitted to [place] and . Importance of abscense from opiates discussed.
== END 2019-11-17 14:15 | disposition home or self-care (01) | DRG 309 ==
LOC: JER 15:43 → JERBED 17:18 → J4S 20:40
PROVIDERS: ADMIT Internal Medicine; ATTEND Internal Medicine
DX: I49.3 Ventricular premature depolarization (principal); N17.9 Acute kidney failure, unspecified; R55 Syncope and collapse; E86.0 Dehydration; E87.6 Hypokalemia; H80.91 Unspecified otosclerosis, right ear; S06.0X0A Concussion without loss of consciousness, initial encounter; N45.1 Epididymitis; F14.10 Cocaine abuse, uncomplicated; W18.39XA Other fall on same level, initial encounter; Y92.098 Other place in other non-institutional residence as the place of occurrence of the external cause
CPT/HCPCS: 36415; 70450-TC; 70551-TC; 71045-TC-FY; 80048; 80053; 80061; 80307; 82550; 82553; 83721; 84443; 84484; 85025; 93005; 93010; 93306-TC; 97116-GP; 97161-GP; 99285-25; U0003

== ENCOUNTER 2021-02-14 08:28 | Emergency (ER) | payer OTHER ==
[2021-02-14 08:41] VITALS: BP 126/76; PULSE 62; TEMP 97.8; BMI 25.7
[2021-02-17 17:08] LABS: SARS-CoV-2 NAA Detected (Not Detected)
== END 2021-02-14 10:00 | disposition home or self-care (01) ==
LOC: JER 08:28
DX: M79.10 Myalgia, unspecified site (principal); R05.9 Cough, unspecified; Z11.52 Encounter for screening for COVID-19
CPT/HCPCS: 99283-25; C9803; U0003; U0005